=== PATIENT | female | born 1985 | race Caucasian/White ===

== ENCOUNTER 2019-07-12 09:57 | Observation (INO) ==
[2019-07-12 10:42] LABS: Bilirubin,Urine Negative (Negative); Blood,Urine Negative (Negative); Clarity,Urine Cloudy (Clear); Color,Urine Dark Yellow (Yellow); Glucose,Urine (UA) Normal (Normal); Ketones,Urine Negative (Negative); Leukocyte Esterase,Urine Large (Negative); Nitrite,Urine Negative (Negative); PH,Urine 5.5 pH Units (5.0-8.0); Protein,Urine 30 mg/dL (Neg-Trace); Specific Gravity,Urine 1.018 (1.010-1.025); Urobilinogen,Urine Normal (Normal)
[2019-07-12 10:43] LABS: Bacteria,Urine Few per hpf (None-Few); RBC,Urine 0-3 per hpf (0-3); Squamous Epithelial Cell,Urine Many per lpf (None-Few); WBC,Urine 50-100 per hpf (0-3)
[2019-07-12 10:55] LABS: Hematocrit 37.9 % (35.3-44.9); Hemoglobin 12.7 g/dL (11.5-15.4); Mean Corpuscular HGB Conc 33.5 g/dL (31.6-35.5); Mean Corpuscular Volume 86.5 fL (83.0-100.0); Mean Platelet Volume 9.9 fL (9.4-12.4); Monocytes # 0.4 K/mcL (0.0-1.3); Platelet Count 202 K/mcL (140-400); Red Blood Count 4.38 M/mcL (3.82-4.97); Red Cell Distribution Width 12.5 % (11.5-14.5); White Blood Count 11.8 K/mcL (4.3-11.1)
[2019-07-12] MEDS ORDERED: Ondansetron 4 MG/2 ML VIAL IVP ONE ×2 (11:09→14:11)
[2019-07-12] MEDS ORDERED: *HR* FentaNYL (PF) 100 MCG/2 ML VIAL IVP ONE (11:09)
[2019-07-12] MEDS ORDERED: 0.9 % Sodium Chloride 1,000 ML IVC ONE ×4 (11:09→16:35)
[2019-07-12] MEDS ORDERED: Isovue-370 500 ML BOTTLE IVP ONE (11:10)
[2019-07-12 11:16] LABS: Calcium 9.4 mg/dL (8.6-10.3); Potassium 3.6 mEq/L (3.5-5.1)
[2019-07-12 11:23] LABS: Lymphocytes # 0.9 K/mcL (0.6-4.6); Neutrophils # 9.7 K/mcL (1.6-8.9)
[2019-07-12 11:24] LABS: Large Platelets Present (Not Present)
[2019-07-12] MEDS ORDERED: Water for inj. (sterile) 10 ML ONE (12:12)
[2019-07-12] MEDS ORDERED: Piperacillin/Tazobactam 3.375 GM in 0.9 % Sodium Chloride Mini Bag 100 ML IVPB ONE (13:01)
--- NOTE | 2019-07-12 13:27 | Emergency Department Note ---
Disposition Clinical Impression: Colitis Abdominal pain Qualifiers: Abdominal location: lower abdomen, unspecified Qualified Code(s): R10.30 - Lower abdominal pain, unspecified Disposition: Admitted As Inpatient Condition: Fair Time of Disposition: 13:00 Abdominal Pain HPI - General Chief Complaint: ED Abdominal Pain Stated Complaint: ABD Pain Time Seen by Provider: 07/12/19 10:15 Source: patient Mode of arrival: ambulatory Limitations: no limitations Nursing Notes Reviewed: Yes Vital Signs Reviewed: Yes - History of Present Illness HPI Narrative: 34-year-old female presents emergency department with concerns of left lower quadrant abdominal pain. Patient states symptoms have been worsening over the past 3-4 days. She states they progressively worsened last night. Patient reports nausea and vomiting and has been unable to tolerate by mouth intake at home. She reports subjective fever but has not taken her temperature at home. She feels weak and fatigued. Her abdomen is very tender to palpation and she has worse with movement. No history of similar symptoms in the past. Patient denies recent trauma. Denies vaginal bleeding or vaginal discharge. Denies vaginal pain. Patient denies dysuria, hematuria, increased urinary frequency or foul-smelling urine. Pain Scale: 10 - Related Data Home Medications Medication Instructions Recorded Confirmed Gabapentin [Gralise] 600 mg PO DAILY 02/09/19 02/09/19 Ibuprofen [Ibu] 800 mg PO PRN PRN 02/09/19 02/09/19 Allergies Allergy/AdvReac Type Severity Reaction Status Date / Time No Known Allergies Allergy Verified 12/13/18 15:44 All systems ED: reviewed and negative except as stated. Review of Systems: As Per HPI Abdominal Pain PMH - Past Medical History Medical history: Reports: no medical history Female Surgical History: Reports: , orthopedic, other COMMERCIAL ADMINISTRATOR history: Reports: no COMMERCIAL ADMINISTRATOR history Psychiatric history: Reports: depression - Social History Smoking status: Current every day smoker Alcohol use: Reports: none Drug use: Reports: opiates, marijuana, IV Drug Use Physical Exam General: Alert and in no acute distress Skin: Warm, dry, intact Head: Normocephalic and atraumatic Neck: Supple, trachea midline and no tenderness Cardiovascular: Tachycardia, no murmur, normal perfusion Respiratory: CTAB, no wheezing, cough, or respiratory distress Musculoskeletal: Normal strength, no tenderness, swelling or deformity. No CVA tenderness GI: Generalized tenderness to the abdomen with worse symptoms in the left lower quadrant. Patient has guarding without rigidity. Neuro: A&O to person, place, time and situation. No focal deficits noted on exam Psychiatric: cooperative and appropriate mood and affect. - General Limitations: no limitations General appearance: alert, in no apparent distress Course Vital Signs Temperature 98.2 F 07/12/19 10:04 Pulse Rate 114 07/12/19 10:04 Respiratory Rate 16 07/12/19 10:04 Blood Pressure 93/61 07/12/19 10:04 O2 Sat by Pulse Oximetry 99 07/12/19 10:04 Temperature 98.2 F 07/12/19 19:27 Pulse Rate 76 07/12/19 19:27 Respiratory Rate 15 07/12/19 19:27 Blood Pressure 96/52 07/12/19 19:27 O2 Sat by Pulse Oximetry 94 07/12/19 19:27 Oxygen Delivery Oxygen Delivery Room Air Abdominal Pain - MDM Narrative Medical decision making narrative: Tachycardia blood pressure improved with IV fluids. Patient has possible colitis on her CT scan. She is treated with IV antibiotics in the emergency department. Patient also has what appears to be a ureterocele versus a ureter diverticulum. She does not have peritoneal pain she denies vaginal bleeding or vaginal discharge. I spoke with urology, Dr. Blum, who will see the patient on the floor. Patient will be admitted to the hospitalist for further care and evaluation. Vital signs stable prior to admission. - Medical Records Medical records reviewed: Yes I reviewed the patient's medical records. - Lab Data Lab results reviewed: Yes I reviewed the patient's lab results. Result diagrams: 07/12/19 10:38 07/12/19 10:38 Lab Results 07/12/19 07/12/19 07/12/19 Range/Units 10:25 10:38 10:38 WBC 11.8 H (4.3-11.1) K/mcL RBC 4.38 (3.82-4.97) M/mcL Hgb 12.7 (11.5-15.4) g/dL Hct 37.9 (35.3-44.9) % MCV 86.5 (83.0-100.0) fL MCH 29.0 (28.0-33.3) pg MCHC 33.5 (31.6-35.5) g/dL RDW 12.5 (11.5-14.5) % Plt Count 202 (140-400) K/mcL MPV 9.9 (9.4-12.4) fL Seg Neutrophils % 54.0 % Band Neutrophils % 28.0 H (0-4) % Lymphocytes % 8.0 % Monocytes % 3.0 % Metamyelocytes % 7.0 H (0) % Neutrophils # 9.7 H (1.6-8.9) K/mcL Lymphocytes # 0.9 (0.6-4.6) K/mcL Monocytes # 0.4 (0.0-1.3) K/mcL Large Platelets Present A (Not Present) Sodium 134 L (136-145) mEq/L Potassium 3.6 (3.5-5.1) mEq/L Chloride 101 (98-107) mEq/L Carbon Dioxide 23 (23-29) mEq/L BUN 20 (6-20) mg/dL Creatinine 1.35 H (0.60-1.20) mg/dL Est GFR ( Amer) 54 L (> 60) Est GFR (Non-Af Amer) 45 L (> 60) BUN/Creatinine Ratio 15 (6-26) Glucose 136 H (70-105) mg/dL Calculated Osmolality 283 (280-300) Lactic Acid (0.5-2.2) mmol/L Calcium 9.4 (8.6-10.3) mg/dL Urine Color Dark Yellow (Yellow) Urine Clarity Cloudy A (Clear) Urine pH 5.5 (5.0-8.0) pH Units Ur Specific [place] 1.018 (1.010-1.025) Urine Protein 30 H (Neg-Trace) mg/dL Urine Glucose (UA) Normal (Normal) mg/dL Urine Ketones Negative (Negative) mg/dL Urine Blood Negative (Negative) Urine Nitrite Negative (Negative) Urine Bilirubin Negative (Negative) Urine Urobilinogen Normal (Normal) mg/dL Ur Leukocyte Esterase Large H (Negative) Urine Microscopic RBC 0-3 (0-3) per hpf Urine Microscopic WBC 50-100 H (0-3) per hpf Ur Squamous Epith Cells Many H (None-Few) per lpf Urine Bacteria Few (None-Few) per hpf Ur Culture Indicated? YES A (NO) Urine Test (Negative) Ur C. trach DNA (PCR) (Not Detect) HIV Ag/Ab Combo Qual (Nonreactive) U N.gonorrhoeae DNA PCR (Not Detect) 07/12/19 07/12/19 07/12/19 Range/Units 11:31 13:15 17:45 WBC (4.3-11.1) K/mcL RBC (3.82-4.97) M/mcL Hgb (11.5-15.4) g/dL Hct (35.3-44.9) % MCV (83.0-100.0) fL MCH (28.0-33.3) pg MCHC (31.6-35.5) g/dL RDW (11.5-14.5) % Plt Count (140-400) K/mcL MPV (9.4-12.4) fL Seg Neutrophils % % Band Neutrophils % (0-4) % Lymphocytes % % Monocytes % % Metamyelocytes % (0) % Neutrophils # (1.6-8.9) K/mcL Lymphocytes # (0.6-4.6) K/mcL Monocytes # (0.0-1.3) K/mcL Large Platelets (Not Present) Sodium (136-145) mEq/L Potassium (3.5-5.1) mEq/L Chloride (98-107) mEq/L Carbon Dioxide (23-29) mEq/L BUN (6-20) mg/dL Creatinine (0.60-1.20) mg/dL Est GFR ( Amer) (> 60) Est GFR (Non-Af Amer) (> 60) BUN/Creatinine Ratio (6-26) Glucose (70-105) mg/dL Calculated Osmolality (280-300) Lactic Acid 2.7 H 2.8 H 2.5 H (0.5-2.2) mmol/L Calcium (8.6-10.3) mg/dL Urine Color (Yellow) Urine Clarity (Clear) Urine pH (5.0-8.0) pH Units Ur Specific [place] (1.010-1.025) Urine Protein (Neg-Trace) mg/dL Urine Glucose (UA) (Normal) mg/dL Urine Ketones (Negative) mg/dL Urine Blood (Negative) Urine Nitrite (Negative) Urine Bilirubin (Negative) Urine Urobilinogen (Normal) mg/dL Ur Leukocyte Esterase (Negative) Urine Microscopic RBC (0-3) per hpf Urine Microscopic WBC (0-3) per hpf Ur Squamous Epith Cells (None-Few) per lpf Urine Bacteria (None-Few) per hpf Ur Culture Indicated? (NO) Urine Test (Negative) Ur C. trach DNA (PCR) (Not Detect) HIV Ag/Ab Combo Qual (Nonreactive) U N.gonorrhoeae DNA PCR (Not Detect) 07/12/19 07/12/19 07/12/19 Range/Units 17:45 18:15 18:15 WBC (4.3-11.1) K/mcL RBC (3.82-4.97) M/mcL Hgb (11.5-15.4) g/dL Hct (35.3-44.9) % MCV (83.0-100.0) fL MCH (28.0-33.3) pg MCHC (31.6-35.5) g/dL RDW (11.5-14.5) % Plt Count (140-400) K/mcL MPV (9.4-12.4) fL Seg Neutrophils % % Band Neutrophils % (0-4) % Lymphocytes % % Monocytes % % Metamyelocytes % (0) % Neutrophils # (1.6-8.9) K/mcL Lymphocytes # (0.6-4.6) K/mcL Monocytes # (0.0-1.3) K/mcL Large Platelets (Not Present) Sodium (136-145) mEq/L Potassium (3.5-5.1) mEq/L Chloride (98-107) mEq/L Carbon Dioxide (23-29) mEq/L BUN (6-20) mg/dL Creatinine (0.60-1.20) mg/dL Est GFR ( Amer) (> 60) Est GFR (Non-Af Amer) (> 60) BUN/Creatinine Ratio (6-26) Glucose (70-105) mg/dL Calculated Osmolality (280-300) Lactic Acid (0.5-2.2) mmol/L Calcium (8.6-10.3) mg/dL Urine Color (Yellow) Urine Clarity (Clear) Urine pH (5.0-8.0) pH Units Ur Specific [place] (1.010-1.025) Urine Protein (Neg-Trace) mg/dL Urine Glucose (UA) (Normal) mg/dL Urine Ketones (Negative) mg/dL Urine Blood (Negative) Urine Nitrite (Negative) Urine Bilirubin (Negative) Urine Urobilinogen (Normal) mg/dL Ur Leukocyte Esterase (Negative) Urine Microscopic RBC (0-3) per hpf Urine Microscopic WBC (0-3) per hpf Ur Squamous Epith Cells (None-Few) per lpf Urine Bacteria (None-Few) per hpf Ur Culture Indicated? (NO) Urine Test Negative (Negative) Ur C. trach DNA (PCR) NOT DETECTED (Not Detect) HIV Ag/Ab Combo Qual Nonreactive (Nonreactive) U N.gonorrhoeae DNA PCR DETECTED A (Not Detect) - Radiology Data Radiology results reviewed: Yes I reviewed the patient's radiology results. - EKG Data EKG attestation: Yes I reviewed and interpreted this EKG. EKG results narrative: Sinus tachycardia with a rate of 106 without evidence of STEMI or other dysrhythmia. QTC of 452, QRS of 72.
[2019-07-12] MEDS ORDERED: Naloxone 0.4 MG/ML INJ IVP PRN (14:52)
--- NOTE | 2019-07-12 14:57 | Internal Med History&Physical ---
Date of Encounter: 07/12/19 Time of Encounter: 14:52 Internal Medicine - H&P: HPI Chief complaint: abdominal pain Admitted From: Home Plans for Post Hospital Care: Home History of present illness: Ms. Ruiz is a 34 year old female with past medical history of IV drug use including methamphetamine, heroin, opiates came in with complaint of abdominal pain. Patient is a very poor historian and not completely cooperative and forthcoming with history and changing her history. She has been having abdominal pain for almost a week. She reported having sex which was unprotected. She has history of STD in the past with coronary about 1-2 years ago. Does not consistently use protection. Denies having history of HIV. Denies having any obvious fever but felt febrile. Initially denied any vaginal discharge but mention there was some "abnormal urine/discharge" when she went to bathroom in ER. She denies any similar abdominal pain in the past. She has been using IV drugs last used 2 days ago and does not know exactly what she used to. Denies any diarrhea. Denies any urinary complaints including burning [place] or frequency in urination. Had associated nausea. Denying any rash. Patient was evaluated in ER with CBC, BMP, urine analysis and CT abdomen. Patient was found to have bandemia with elevated WBC, creatinine of 1.35, lactic acid of 2.8 from 2.7 and abnormal urinalysis with large leukocyte esterase many WBCs. Patient did not have any pelvic exam and refused to allow me. Patient was given 2 L of normal saline, fentanyl and Zosyn [address] abdomen was reviewed and multiple finding as below per radiologist. She does not have any allergies and does not take any regular medication. Past Med Surg Social Fam HX - Past Medical History Medical history: no medical history - Past Surgical History Surgical History: no surgical history Additional surgical history: csection, hand surgery on Lt - Social History Smoking Status: Current every day smoker Smokeless Tobacco Status: No Alcohol use: none Drug use: opiates, marijuana, IV Drug Use - Additional Family History Additional family history: No family history of crohns's or any other medical probelms that she is aware of. Internal Medicine - H&P: Meds Gabapentin [Gralise] 600 mg PO DAILY 02/09/19 [History] Ibuprofen [Ibu] 800 mg PO PRN PRN 02/09/19 [History] Allergy/AdvReac Type Severity Reaction Status Date / Time No Known Allergies Allergy Verified 12/13/18 15:44 All Systems PM: A 10-system review of systems was performed and is negative for pertinent findings except as documented above in the HPI. - Constitutional Vitals: Temp Pulse Resp BP Pulse Ox 98.2 F 94 17 104/57 97 07/12/19 10:04 07/12/19 11:06 07/12/19 11:06 07/12/19 11:06 07/12/19 11:06 Exam: Patient not fully cooperative during exam Constitutional: Vitals as noted. In mild distress holding abdomen. Eyes : Sclera white, conjunctiva clear, no lid lag, PEARLA. Respiratory : Clear to auscultation bilaterally. No accessory muscle use, rales, rhonchi or wheezes Cardiovascular : tachycardic, +S1, +S2. no murmur, gallop, rubs. GI/Abdominal : generalized tenderness, Non-distended, soft, suprapubic tenderness, no CVA tenderness. Musculoskeletal: no deformity noted. no edema or cyanosis. warm extremities, pulses palpable and symmetrical in UE/LE. no calf tenderness. Neurological: AO X3, CN II-XII grossly intact, grossly normal motor and sensory exam with limited exam. Skin: did not allow to exam throughly. Limited exam with no rash. Internal Med - H&P Results - Labs CBC & Chem 7: 07/12/19 10:38 07/12/19 10:38 Labs: Short CBC 07/12/19 Range/Units 10:38 WBC 11.8 H (4.3-11.1) K/mcL Hgb 12.7 (11.5-15.4) g/dL Hct 37.9 (35.3-44.9) % Plt Count 202 (140-400) K/mcL Neutrophils # 9.7 H (1.6-8.9) K/mcL BMP 07/12/19 10:38 Sodium 134 L Potassium 3.6 Chloride 101 Carbon Dioxide 23 BUN 20 Creatinine 1.35 H Glucose 136 H Calcium 9.4 Urine 07/12/19 Range/Units 10:25 Urine Color Dark Yellow (Yellow) Urine Clarity Cloudy A (Clear) Urine pH 5.5 (5.0-8.0) pH Units Ur Specific [place] 1.018 (1.010-1.025) Urine Protein 30 H (Neg-Trace) mg/dL Urine Glucose (UA) Normal (Normal) mg/dL - Impressions ITS Impressions Abdomen/Pelvis CT 07/12/19 11:10 IMPRESSION: 1. Mild wall thickening involving the colon at the hepatic flexure with a small amount of fluid and stranding in this region. Findings may be related to enterocolitis given inflammatory changes near the terminal ileum as well. Although the terminal ileum is underdistended given inflammatory changes in this region, recommend correlation with any history of Crohn's disease. The appendix is grossly normal. 2. Nonspecific mild inflammatory changes are noted in the anterior pelvis as well along the uterine fundus and bladder. Recommend correlation with urinalysis and pelvic exam.. Although there is heterogeneous enhancement of the uterus, which is nonspecific, the ovaries are otherwise normal in appearance. 3. Left-sided ureterocele is again identified. There is also a 1.5 x 1.0 cm peripherally enhancing cystic lesion within the perineum reflecting either a Duvall's duct cyst, urethral diverticulum, or less likely a Bartholin's gland duct cyst. An infected cyst is not excluded if there is focal pain in this region. D/ / 07/12/2019 12:51:59 Jessica Bagley MD / seven Interpreting Provider: Jessica Bagley MD - Assessment and Plan (1) Sepsis Current Visit: Yes Status: Acute Assessment and plan: Patient has severe sepsis with possible intra-abdominal source AIRCRAFT MECHANIC ARMAMENT source appeared to be more likely however also possible to have lower UTI and/or entero-colitis. Does not appear to have any skin lesion on side of IVDU or any other stigmata of endocarditis with a limited exam. Given patient's previous history of STD we will treat as such as patient does have some high risk behavior as well. We will consult AIRCRAFT MECH[employer]IC ARMAMENT for additional input. We will change patient's antibiotics to ceftriaxone, doxycycline and metronidazole for now. Follow blood and urine cultures. Follow-up lactic acid. We will do 1 more bolus of NS and continue at 100 mL after We will get HIV testing. Patient did not have any pelvic exam in ER. We will obtain urine chlamydia and gonorrhea testing along with urine toxicology and urine test. Patient's last menstrual period finished about 5 days ago. Qualifiers: Sepsis type: sepsis due to unspecified organism Sepsis acute organ dysfunction status: without acute organ dysfunction Qualified Code(s): A41.9 - Sepsis, unspecified organism (2) ROMAN (acute kidney injury) Current Visit: Yes Status: Acute Assessment and plan: Likely prerenal in nature due to sepsis continue patient on IV fluids Monitor renal function. Avoid nephrotoxins and monitor I/O (3) Polysubstance abuse Current Visit: Yes Status: Acute Assessment and plan: Patient with history of polysubstance drug abuse last use about 2 days ago Patient not forthcoming about all the different drugs she is using and all the method of using. She admits to use opiates, methamphetamine and marijuana. Denying any rectal or vaginal use Will avoid any substance with a due to potential. We will control pain with acetaminophen if needed. (4) IVDU (intravenous drug user) Current Visit: Yes Status: Acute Assessment and plan: as above (5) Abdominal pain Current Visit: Yes Status: Acute Qualifiers: Abdominal location: lower abdomen, unspecified Qualified Code(s): R10.30 - Lower abdominal pain, unspecified (6) DVT prophylaxis Current Visit: Yes Status: Acute Assessment and plan: heparin sc - Time Spent With Patient Total time spent is greater than 50% in coordination of care (as documented) at patient's floor/unit and/or counseling patient:
[2019-07-12] MEDS: Acetaminophen 325 MG TABLET PO PRN (17:47)
[2019-07-12] MEDS: 0.9 % Sodium Chloride 1,000 ML IVC SCH (19:15)
[2019-07-12 20:20] LABS: Chlamydia Trachomatis DNA Ur NOT DETECTED (Not Detect)
[2019-07-12] MEDS: cefTRIAXone 1,000 MG in Water for inj. (sterile) 10 ML IVP SCH (21:09)
[2019-07-12] MEDS: Doxycycline 100 MG in 0.9 % Sodium Chloride Mini Bag 100 ML IVPB SCH (21:10)
[2019-07-12] MEDS: *HR* Heparin 5,000 UNIT/ML VIAL SQ SCH (21:10)
[2019-07-12] MEDS ORDERED: Azithromycin 250 MG TABLET PO ONE (22:58)
--- NOTE | 2019-07-12 23:34 | OB/GYN Consult Note ---
Date of Encounter: 07/13/19 Time of Encounter: 21:00 Assessment and Plan (1) Gonorrhea Current Visit: Yes Status: Acute Patient is being treated with ceftriaxone, Flagyl, doxycycline per hospitalist team. We will add 2 g of Zithromax to the regimen. Ana is to follow-up with Dr. Ferrera in 2 weeks for a formal Pap smear, and a test of cure. At this point, [employer]BU[employer]ICE [employer]OD will sign off History of Present Illness Consult date: 07/12/19 Reason for consult: pelvic infection, medical complication Chief complaint: Abdominal Pain History of present illness: Ms. Ruiz is a 34 year old female with FDLMP 3 days ago and prior tubal ligation who presented with complaint of abdominal pain and was admitted to 3A for Sepsis. Patient states that her the abdominal pain started a few days ago in the left lower quadrant, and described it as a shooting pain that was an 8 out of 10 that has progressively gotten worse, and became unbearable last night. Her pain is now somewhat generalized over the entire abdomen but it is mostly in the left lower quadrant and suprapubic region. Patient has had no abdominal surgeries, and 2 pelvic surgeries (2 sections, and a tubal) She states that it radiates into her back and chest. Patient is a very poor historian. Her story has changed from the ED physician to the hospitalist, and to [employer]. Patient has a history of risky sexual behavior, has had multiple male partners over the past year with intermittent condom use. She states that she had a recent one night stand, that was unprotected. She has a history of gonorrhea, Denies having history of HIV or hepatitis. She is unsure of her last gynecological appointment or her last Pap smear results, but states that she was told that she had what she described as a pre cancerous female condition. Patient's last menstrual period ended 3 days ago. She states that her periods are regular, but they have been lasting longer than the usual normal 5-7 days, and they have been lasting around 10 days. She states that she has a history of having a left-sided ovarian cyst. She denies dyspareunia, vaginal odor, vaginal discharge. Denies dysuria, hematuria. The patient endorses some shortness of breath, nausea yesterday, nonbloody nonbilious vomiting 1 yesterday, subjective fevers, and anorexia. Patient was evaluated in ER with CBC, BMP, urine analysis and CT abdomen. Patient was found to have bandemia with elevated WBC, creatinine of 1.35, lactic acid of 2.8 from 2.7 and abnormal urinalysis with large leukocyte esterase many WBCs. The hospitalist team ordered urinary gonorrhea and chlamydia tests. Gonorrhea was positive, she was treated with ceftriaxone, doxycycline, and Flagyl by the hospitalist team. She was given Zosyn by the emergency medicine team. Past Med Surg Social Fam HX - Past Medical History Source: patient Medical history: IV drug use Additional medical history: Restless leg syndrome Psychiatric history: anxiety - Past Surgical History Surgical History: no surgical history, , other Additional surgical history: csection, hand surgery on Lt, tubal - Social History Smoking Status: Current every day smoker Packs per day: 1 Smokeless Tobacco Status: No Alcohol use: occasionally Drug use: opiates, marijuana, methamphetamine, IV Drug Use Medications and Allergies Gabapentin [Gralise] 600 mg PO DAILY 02/09/19 [History] Ibuprofen [Ibu] 800 mg PO PRN PRN 02/09/19 [History] Allergy/AdvReac Type Severity Reaction Status Date / Time No Known Allergies Allergy Verified 12/13/18 15:44 Review of Systems All Systems: reviewed and no additional remarkable complaints except as stated Constitutional: anorexia, fever(s), malaise, no chills, no fatigue, no headache(s), no lethargy Cardiovascular: chest pain, dyspnea, rapid heart rate, no radiating jaw, neck or arm pain, no leg edema, no lightheadedness, no syncope Respiratory: dyspnea Gastrointestinal: abdominal pain, nausea, no change in bowel habits, no constipation, no cramping, no excessive flatus, no fecal incontinence, no heartburn, no loose stools Genitourinary Female: abnormal menses, pelvic pain, no abnormal vaginal bleeding, no amenorrhea, no difficulty urinating, no difficulty voiding, no dysmenorrhea, no dyspareunia, no dysuria, no flank pain, no genital lesions, no genital pruritis, no sexual dysfunction, no urinary frequency, no urinary incontinence, no vaginal discharge, no vaginal odor Menstruation: menses 8 or > days Exam - Vital Signs Vital signs: Initial Vital Signs Temp Pulse Resp BP Pulse Ox 98.2 F 114 16 93/61 99 07/12/19 10:04 07/12/19 10:04 07/12/19 10:04 07/12/19 10:04 07/12/19 10:04 - Constitutional Constitutional: well developed, well nourished, no acute distress, average body habitus - HEENT HEENT: Normocephaly, Mucus Membranes Moist - Neck Neck exam: full ROM, normal inspection - Lungs Respiratory exam: CTAB, tachypnea - Cardiovascular Cardiovascular exam: +S1, +S2, tachycardia - Abdomen Abdomen: Present: bowel sounds normal, diffuse tenderness, guarding noted. Absent: gravid, mass Abdomen detail: right lower quadrant: tenderness (Suprapubic tenderness, voluntary guarding, no peritoneal signs, no rigidity, no fluid wave, no rebound. No guarding to deep auscultation), left lower quadrant: tenderness - Extremities Extremities exam: full ROM, normal capillary refill, normal inspection, radial pulses palpable and symmetrical - Comments Comments: The patient has refused a pelvic exam . She has agreed to follow up in [address] Ferrera as an outpatient for a formal Pap smear. Results Result Diagrams: 07/13/19 06:10 07/13/19 06:10 Abnormal lab results WBC 11.8 K/mcL (4.3-11.1) H 07/12/19 10:38 Band Neutrophils % 28.0 % (0-4) H 07/12/19 10:38 Metamyelocytes % 7.0 % (0) H 07/12/19 10:38 Neutrophils # 9.7 K/mcL (1.6-8.9) H 07/12/19 10:38 Large Platelets Present (Not Present) A 07/12/19 10:38 Sodium 134 mEq/L (136-145) L 07/12/19 10:38 Creatinine 1.35 mg/dL (0.60-1.20) H 07/12/19 10:38 Est GFR ( Amer) 54 (> 60) L 07/12/19 10:38 Est GFR (Non-Af Amer) 45 (> 60) L 07/12/19 10:38 Glucose 136 mg/dL (70-105) H 07/12/19 10:38 Lactic Acid 2.5 mmol/L (0.5-2.2) H 07/12/19 17:45 Urine Clarity Cloudy (Clear) A 07/12/19 10:25 Urine Protein 30 mg/dL (Neg-Trace) H 07/12/19 10:25 Ur Leukocyte Esterase Large (Negative) H 07/12/19 10:25 Urine Microscopic WBC 50-100 per hpf (0-3) H 07/12/19 10:25 Ur Squamous Epith Cells Many per lpf (None-Few) H 07/12/19 10:25 Ur Culture Indicated? YES (NO) A 07/12/19 10:25 U N.gonorrhoeae DNA PCR DETECTED (Not Detect) A 07/12/19 18:[address] All other labs normal. CT scan - abdomen: report reviewed CT scan - pelvis: report reviewed Consult Discharge Plan - Plan Instructions: Pelvic Inflammatory Disease (GEN), Pap Smear (GEN), Safe Sex (GEN) Additional Instructions: Please make an appointment with Dr. Sara Ferrera, in two weeks for a Pap Smear and test of cure. Referrals: NONE,PCP [Primary Care Provider] - Melisa Ferrera DO [Partnered Physician] - - Attending Attestation I examined this patient and my medical decision-making was reviewed with the Resident Physician. I agree with the documented findings, disposition and treatment plan as described. Signing off for WIRE WINDER. Please have the patient followup with me in my office in 2 weeks for test of cure. She is aware of the findings and agrees she will comply with followup. Melisa Ferrera DO
[2019-07-13] MEDS ORDERED: Ondansetron ODT 4 MG TAB.RAPDIS SL PRN (00:05)
[2019-07-13] MEDS: MetroNIDAZOLE 500 MG/100 ML 500 MG/100 ML BAG IVPB SCH ×2 (00:59→08:46)
[2019-07-13] MEDS: Acetaminophen 325 MG TABLET PO PRN ×2 (01:05→12:07)
[2019-07-13] MEDS ORDERED: Ondansetron 4 MG/2 ML VIAL IVP ONE (04:19)
[2019-07-13] MEDS: Doxycycline 100 MG in 0.9 % Sodium Chloride Mini Bag 100 ML IVPB SCH ×2 (05:35→17:29)
[2019-07-13] MEDS: *HR* Heparin 5,000 UNIT/ML VIAL SQ SCH ×3 (05:36→20:51)
[2019-07-13 06:23] LABS: Hematocrit 32.3 % (35.3-44.9); Mean Corpuscular HGB Conc 32.5 g/dL (31.6-35.5); Mean Corpuscular Hemoglobin 29.2 pg (28.0-33.3); Mean Corpuscular Volume 89.7 fL (83.0-100.0); Mean Platelet Volume 10.3 fL (9.4-12.4); Platelet Count 169 K/mcL (140-400); Red Cell Distribution Width 12.8 % (11.5-14.5)
[2019-07-13 06:30] LABS: Hemoglobin 10.5 g/dL (11.5-15.4)
[2019-07-13 06:43] LABS: BUN/Creatinine Ratio 18 (6-26); Blood Urea Nitrogen 17 mg/dL (6-20); Calcium 8.5 mg/dL (8.6-10.3); Carbon Dioxide 21 mEq/L (23-29); Chloride 110 mEq/L (98-107); Glucose 103 mg/dL (70-105); Osmolality,Calculated 288 (280-300); Potassium 4.2 mEq/L (3.5-5.1); Sodium 138 mEq/L (136-145); eGFR For African Americans > 60 (> 60); eGFR For Non-African Americans > 60 (> 60)
[2019-07-13 06:47] LABS: Lymphocytes # 0.9 K/mcL (0.6-4.6); Monocytes # 0.4 K/mcL (0.0-1.3); Neutrophils # 9.7 K/mcL (1.6-8.9); Platelet Estimate Normal (Normal); Smudge Cells Present (Not Present)
[2019-07-13] MEDS: 0.9 % Sodium Chloride 1,000 ML IVC SCH ×2 (08:46)
[2019-07-13] MEDS: Ketorolac 15 MG/ML VIAL IVP PRN ×3 (08:47→20:51)
--- NOTE | 2019-07-13 08:56 | Urology - Consult Note ---
<Janell Rizzo N - Last Filed: 07/13/19 08:54> Date of Encounter: 07/13/19 Time of Encounter: 08:00 - Assessment and Plan (1) Ureterocele Current Visit: Yes Status: Acute Assessment and plan: Patient is a 34-year-old female who presents with a left ureterocele. There are no prior films for comparison, but CT report is suggestive of redemonstration of left ureterocele. Patient reports this finding is unknown to her, and she denies any pain or changes with urination. Patient is not forthcoming with H&P, and she responded to only yes or no questions. I explained the ureterocele may be surgically repaired if she desires. I do not anticipate any urgent urologic surgical intervention during this hospital stay. Patient will likely require additional or repeat imaging as an outpatient. Dr. Blum will be in to reevaluate patient later this afternoon. (2) Perineal cyst in female Current Visit: Yes Status: Acute Assessment and plan: Patient is a 34-year-old female who presents with a 1.5 x 1.0 cm perineal cystic structure. I reviewed the CT findings with patient at bedside. She reports no palpable mass or pain within the vagina or perineum. The differential includes a Oliver's duct cyst versus urethral diverticulum. Patient may benefit from MRI, as this is the preferred imaging modality for the urethra. Dr. Blum is aware of findings, and he will discuss further management with patient. (3) Sepsis Current Visit: Yes Status: Acute Assessment and plan: Patient is a 34-year-old female who presents with a history of abdominal pain, elevated white blood cell count and gonorrhea cervicitis. Vital signs are currently stable and afebrile. Patient met sepsis criteria on admission. Urology recommendations awaiting final urine culture. Patient has received IV Rocephin, doxycycline, azithromycin and Zosyn. Qualifiers: Sepsis type: sepsis due to unspecified organism Sepsis acute organ dysfunction status: without acute organ dysfunction Qualified Code(s): A41.9 - Sepsis, unspecified organism Urology CN:[facility] Consult date: 07/13/19 Reason for consult Urology: Other (ureterocele; urethral diverticulum) Requesting physician: Evan Saldivar History of present illness: Patient is a 34-year-old female who presents with a history of left ureterocele and 1.5 x 1.0 cm enhancement within the perineum, possibly resembling a Oliver's gland cyst versus a urethral diverticulum. Patient is a known IV drug user and admits to heroin use, methamphetamine use and opioid abuse. Patient presented to the emergency department with complaints of left lower quadrant pain, nausea and vomiting. Patient underwent a CT of the abdomen and pelvis suggestive of colitis, left ureterocele, heterogeneous changes within the uterus and bladder, and a 1.5 x 1.0 cm cystic structure within the perineum. Patient was found to have a positive gonorrhea culture, and she has undergone [employer] consultation. Patient denies any vaginal pain, palpable cystic structure in the vagina or perineum, dysuria, gross hematuria, flank pain, fever, chills, urgency, frequency, or incontinence. Patient denies any known past history of renal stones or any known family history of renal stones or other malignancy. Patient states she is not established with a urologist and has no known prior significant history. Past Med Surg Social Fam HX - Past Medical History Medical history: IV drug use Additional medical history: Restless leg syndrome Psychiatric history: anxiety - Past Surgical History Surgical History: no surgical history, , other Additional surgical history: csection, hand surgery on Lt, tubal - Social History Smoking Status: Current every day smoker Packs per day: 1 Smokeless Tobacco Status: No Alcohol use: occasionally Drug use: opiates, marijuana, methamphetamine, IV Drug Use - Additional Family History Additional family history: Denies any known family history of renal stones or malignancy Medications and Allergies Ibuprofen [Ibu] 800 mg PO TID PRN 02/09/19 [History] Gabapentin 600 mg PO TID 07/13/19 [History] Allergy/AdvReac Type Severity Reaction Status Date / Time No Known Allergies Allergy Verified 07/13/19 10:46 Review of Systems - Constitutional no chills, no fatigue, no fever(s) - EENT Nose, mouth and throat: no dizziness, no headache(s) - Cardiovascular no chest pain, no diaphoresis, no dyspnea - Respiratory no cough, no dyspnea - Gastrointestinal abdominal pain, nausea, vomiting - Genitourinary Genitourinary: vaginal discharge, no change in urinary stream, no difficulty urinating, no dyspareunia, no dysuria, no flank pain, no hematuria, no nocturia, no urinary frequency, no urinary hesitancy, no urinary incontinence, no urinary urgency, no vaginal odor, no vaginal pruritis - Musculoskeletal no back pain, no muscle weakness - Integumentary no erythema, no rash - Neurological no confusion, no syncope - Psychiatric no anxiety, no confusion - Hematologic/Lymphatic no easy bleeding, no easy bruising - Allergic/Immunologic no throat swelling, no wheezing Exam Initial Vital Signs Temp Pulse Resp BP Pulse Ox 98.2 F 114 16 93/61 99 07/12/19 10:04 07/12/19 10:04 07/12/19 10:04 07/12/19 10:04 07/12/19 10:04 - General physical appearance Present: no distress, no pain - Eyes Present: PERRL, normal ocular movement - ENT Present: normal nares, no hearing loss, no congestion - Neck Present: no masses, trachea midline, no lymphadenopathy - Respiratory Present: normal respiratory effort - Cardiovascular Cardiovascular exam IM: RRR - Abdomen Abdomen: Present: soft, non tender. Absent: distended - Genitourinary Present: other (No CVAT) - Integumentary Present: no rash, no abnormal pigmentation - Neurologic Present: normal coordination - Musculoskeletal Present: other (Normal posture) Urology Results - Labs 07/13/19 06:10 07/13/19 06:10 Abnormal lab results WBC 11.8 K/mcL (4.3-11.1) H 07/12/19 10:38 RBC 3.60 M/mcL (3.82-4.97) L 07/13/19 06:10 Hgb 10.5 g/dL (11.5-15.4) L D 07/13/19 06:10 Hct 32.3 % (35.3-44.9) L 07/13/19 06:10 Band Neutrophils % 34.0 % (0-4) H 07/13/19 06:10 Metamyelocytes % 7.0 % (0) H 07/12/19 10:38 Neutrophils # 9.7 K/mcL (1.6-8.9) H 07/13/19 06:10 Smudge Cells Present (Not Present) A 07/13/19 06:10 Large Platelets Present (Not Present) A 07/12/19 10:38 Sodium 134 mEq/L (136-145) L 07/12/19 10:38 Chloride 110 mEq/L (98-107) H 07/13/19 06:10 Carbon Dioxide 21 mEq/L (23-29) L 07/13/19 06:10 Creatinine 1.35 mg/dL (0.60-1.20) H 07/12/19 10:38 Est GFR ( Amer) 54 (> 60) L 07/12/19 10:38 Est GFR (Non-Af Amer) 45 (> 60) L 07/12/19 10:38 Glucose 136 mg/dL (70-105) H 07/12/19 10:38 Lactic Acid 2.5 mmol/L (0.5-2.2) H 07/12/19 17:45 Calcium 8.5 mg/dL (8.6-10.3) L 07/13/19 06:10 Urine Clarity Cloudy (Clear) A 07/12/19 10:25 Urine Protein 30 mg/dL (Neg-Trace) H 07/12/19 10:25 Ur Leukocyte Esterase Large (Negative) H 07/12/19 10:25 Urine Microscopic WBC 50-100 per hpf (0-3) H 07/12/19 10:25 Ur Squamous Epith Cells Many per lpf (None-Few) H 07/12/19 10:25 Ur Culture Indicated? YES (NO) A 07/12/19 10:25 U N.gonorrhoeae DNA PCR DETECTED (Not Detect) A 07/12/19 18:15 Diabetes panel 07/12/19 07/13/19 Range/Units 10:38 06:10 Sodium 134 L 138 (136-145) mEq/L Potassium 3.6 4.2 (3.5-5.1) mEq/L Chloride 101 110 H (98-107) mEq/L Carbon Dioxide 23 21 L (23-29) mEq/L BUN 20 17 (6-20) mg/dL Creatinine 1.35 H 0.97 (0.60-1.20) mg/dL Glucose 136 H 103 (70-105) mg/dL Calcium 9.4 8.5 L (8.6-10.3) mg/dL Calcium panel 07/12/19 07/13/19 Range/Units 10:38 06:10 Calcium 9.4 8.5 L (8.6-10.3) mg/dL Pituitary panel 07/12/19 07/13/19 Range/Units 10:38 06:10 Sodium 134 L 138 (136-145) mEq/L Potassium 3.6 4.2 (3.5-5.1) mEq/L Chloride 101 110 H (98-107) mEq/L Carbon Dioxide 23 21 L (23-29) mEq/L BUN 20 17 (6-20) mg/dL Creatinine 1.35 H 0.97 (0.60-1.20) mg/dL Glucose 136 H 103 (70-105) mg/dL Calcium 9.4 8.5 L (8.6-10.3) mg/dL Adrenal panel 07/12/19 07/13/19 Range/Units 10:38 06:10 Sodium 134 L 138 (136-145) mEq/L Potassium 3.6 4.2 (3.5-5.1) mEq/L Chloride 101 110 H (98-107) mEq/L Carbon Dioxide 23 21 L (23-29) mEq/L BUN 20 17 (6-20) mg/dL Creatinine 1.35 H 0.97 (0.60-1.20) mg/dL Glucose 136 H 103 (70-105) mg/dL Calcium 9.4 8.5 L (8.6-10.3) mg/dL All other labs normal. - Imaging CT scan - abdomen: report reviewed, image reviewed CT scan - pelvis: report reviewed, image reviewed Consult Discharge Plan - Plan Instructions: Pelvic Inflammatory Disease (GEN), Pap Smear (GEN), Safe Sex (GEN) Additional Instructions: Please make an appointment with Dr. Sara Ferrera, in two weeks for a Pap Smear and test of cure. Referrals: Melisa Ferrera DO [Partnered Physician] - NONE,PCP [Primary Care Provider] - <Pierre Blum - Last Filed: 07/13/19 13:37> Date of Encounter: 07/13/19 Urology CN:HPI History of present illness: Patient was seen and examined independently. I do the plan as written by Janell Rizzo. Patient's exam not consistent with bladder or kidney discomfort. We will continue to follow along while patient in hospital. Patient will need follow-up visit with me to discuss evaluation of her ureterocele as well as periurethral abnormality. Exam Initial Vital Signs Temp Pulse Resp BP Pulse Ox 98.2 F 114 16 93/61 99 07/12/19 10:04 07/12/19 10:04 07/12/19 10:04 07/12/19 10:04 07/12/19 10:04 Urology Results - Labs 07/13/19 06:10 07/13/19 06:10 Abnormal lab results WBC 11.8 K/mcL (4.3-11.1) H 07/12/19 10:38 RBC 3.60 M/mcL (3.82-4.97) L 07/13/19 06:10 Hgb 10.5 g/dL (11.5-15.4) L D 07/13/19 06:10 Hct 32.3 % (35.3-44.9) L 07/13/19 06:10 Band Neutrophils % 34.0 % (0-4) H 07/13/19 06:10 Metamyelocytes % 7.0 % (0) H 07/12/19 10:38 Neutrophils # 9.7 K/mcL (1.6-8.9) H 07/13/19 06:10 Smudge Cells Present (Not Present) A 07/13/19 06:10 Large Platelets Present (Not Present) A 07/12/19 10:38 Sodium 134 mEq/L (136-145) L 07/12/19 10:38 Chloride 110 mEq/L (98-107) H 07/13/19 06:10 Carbon Dioxide 21 mEq/L (23-29) L 07/13/19 06:10 Creatinine 1.35 mg/dL (0.60-1.20) H 07/12/19 10:38 Est GFR ( Amer) 54 (> 60) L 07/12/19 10:38 Est GFR (Non-Af Amer) 45 (> 60) L 07/12/19 10:38 Glucose 136 mg/dL (70-105) H 07/12/19 10:38 Lactic Acid 2.5 mmol/L (0.5-2.2) H 07/12/19 17:45 Calcium 8.5 mg/dL (8.6-10.3) L 07/13/19 06:10 Urine Clarity Cloudy (Clear) A 07/12/19 10:25 Urine Protein 30 mg/dL (Neg-Trace) H 07/12/19 10:25 Ur Leukocyte Esterase Large (Negative) H 07/12/19 10:25 Urine Microscopic WBC 50-100 per hpf (0-3) H 07/12/19 10:25 Ur Squamous Epith Cells Many per lpf (None-Few) H 07/12/19 10:25 Ur Culture Indicated? YES (NO) A 07/12/19 10:25 U N.gonorrhoeae DNA PCR DETECTED (Not Detect) A 07/12/19 18:15 Diabetes panel 07/13/19 Range/Units 06:10 Sodium 138 (136-145) mEq/L Potassium 4.2 (3.5-5.1) mEq/L Chloride 110 H (98-107) mEq/L Carbon Dioxide 21 L (23-29) mEq/L BUN 17 (6-20) mg/dL Creatinine 0.97 (0.60-1.20) mg/dL Glucose 103 (70-105) mg/dL Calcium 8.5 L (8.6-10.3) mg/dL Calcium panel 07/13/19 Range/Units 06:10 Calcium 8.5 L (8.6-10.3) mg/dL Pituitary panel 07/13/19 Range/Units 06:10 Sodium 138 (136-145) mEq/L Potassium 4.2 (3.5-5.1) mEq/L Chloride 110 H (98-107) mEq/L Carbon Dioxide 21 L (23-29) mEq/L BUN 17 (6-20) mg/dL Creatinine 0.97 (0.60-1.20) mg/dL Glucose 103 (70-105) mg/dL Calcium 8.5 L (8.6-10.3) mg/dL Adrenal panel 07/13/19 Range/Units 06:10 Sodium 138 (136-145) mEq/L Potassium 4.2 (3.5-5.1) mEq/L Chloride 110 H (98-107) mEq/L Carbon Dioxide 21 L (23-29) mEq/L BUN 17 (6-20) mg/dL Creatinine 0.97 (0.60-1.20) mg/dL Glucose 103 (70-105) mg/dL Calcium 8.5 L (8.6-10.3) mg/dL All other labs normal.
--- NOTE | 2019-07-13 11:35 | Internal Med Progress Note ---
Hospitalist Progress Note - Encounter Date of Encounter: 07/13/19 Time of Encounter: 11:32 - Subjective Interval History: Patient seen and examined this morning in with some. No acute overnight events. Patient abdominal pain mildly improved, however still with pain. Afebrile and hemodynamically stable. - Exam Vitals: Temp Pulse Resp BP Pulse Ox 97.7 F 79 14 109/73 98 07/13/19 11:00 07/13/19 11:00 07/13/19 11:00 07/13/19 11:00 07/13/19 11:00 Exam: Constitutional: Vitals as noted. in no distress Respiratory : Clear to auscultation bilaterally. No accessory muscle use, rales, rhonchi or wheezes Cardiovascular : RRR, +S1, +S2. no murmur, gallop, rubs. GI/Abdominal : generalized tenderness, voluntary guarding, Musculoskeletal: no deformity noted. no edema or cyanosis, no calf tenderness. Neurological: AO X3, CN II-XII grossly intact, grossly normal motor and sensory exam with limited exam. Skin: did not allow to exam throughly. Limited exam with no rash. - Assessment and Plan (1) Sepsis Current Visit: Yes Status: Acute (2) ROMAN (acute kidney injury) Current Visit: Yes Status: Acute (3) Polysubstance abuse Current Visit: Yes Status: Acute (4) IVDU (intravenous drug user) Current Visit: Yes Status: Acute (5) Abdominal pain Current Visit: Yes Status: Acute (6) DVT prophylaxis Current Visit: Yes Status: Acute - Time Spent with Patient Assessment Acute Sepsis likely secondary to Gonorrhea Pelvic inflammatory disease ROMAN Ureterocele Perineal cyst Chronic IVDU Polysubstance abuse High risk sexual behaviour Plan - sepsis resolved. Likely secondary to PID from gonorrhea. OBGYN recommendation appreciated. She was given azithromycin dose. Will continue ceftraixone and doxycyline until cultures finalize. Stop metronidazole. HIV test negative. Will obtain syphilis testing. f/u blood and urine culture. - ROMAN resolved. will continue ivf for today - Has Lt ureterocele which is likely old and perineal cyst which is unlikely c ause of current symptoms. Urology recommendation appreciated. - counselled on risk of IVDU, polysubstance abuse and high risk sexual behaviour. Utox pending. - Start toradol prn for pain control as ROMAN resolved. - heparin sc Internal Medicine: Result - Labs CBC & Chem 7: 07/13/19 06:10 07/13/19 06:10 Labs: Short CBC 07/13/19 Range/Units 06:10 WBC 11.0 (4.3-11.1) K/mcL Hgb 10.5 L D (11.5-15.4) g/dL Hct 32.3 L (35.3-44.9) % Plt Count 169 (140-400) K/mcL Neutrophils # 9.7 H (1.6-8.9) K/mcL BMP 07/13/19 06:10 Sodium 138 Potassium 4.2 Chloride 110 H Carbon Dioxide 21 L BUN 17 Creatinine 0.97 Glucose 103 Calcium 8.5 L - Impressions Impressions Abdomen/Pelvis CT 07/12/19 11:10 IMPRESSION: 1. Mild wall thickening involving the colon at the hepatic flexure with a small amount of fluid and stranding in this region. Findings may be related to enterocolitis given inflammatory changes near the terminal ileum as well. Although the terminal ileum is underdistended given inflammatory changes in this region, recommend correlation with any history of Crohn's disease. The appendix is grossly normal. 2. Nonspecific mild inflammatory changes are noted in the anterior pelvis as well along the uterine fundus and bladder. Recommend correlation with urinalysis and pelvic exam.. Although there is heterogeneous enhancement of the uterus, which is nonspecific, the ovaries are otherwise normal in appearance. 3. Left-sided ureterocele is again identified. There is also a 1.5 x 1.0 cm peripherally enhancing cystic lesion within the perineum reflecting either a Cacao's duct cyst, urethral diverticulum, or less likely a Bartholin's gland duct cyst. An infected cyst is not excluded if there is focal pain in this region. D/ / 07/12/2019 12:51:59 Jessica Bagley MD / seven Interpreting Provider: Jessica Bagley MD Consult Discharge Plan - Plan Instructions: Pelvic Inflammatory Disease (GEN), Pap Smear (GEN), Safe Sex (GEN) Additional Instructions: Please make an appointment with Dr. Sara Ferrera, in two weeks for a Pap Smear and test of cure. Referrals: Melisa Ferrera, DO [Partnered Physician] - NONE,PCP [Primary Care Provider] - (1) Sepsis Qualifiers: Sepsis type: sepsis due to unspecified organism Sepsis acute organ dysfunction status: without acute organ dysfunction Qualified Code(s): A41.9 - Sepsis, unspecified organism (5) Abdominal pain Qualifiers: Abdominal location: lower abdomen, unspecified Qualified Code(s): R10.30 - Lower abdominal pain, unspecified
[2019-07-13] MEDS: Nicotine 2 MG GUM BC PRN (11:49)
[2019-07-13] MEDS: Nicotine 21 MG PATCH.TD24 TD SCH (11:49)
[2019-07-13 16:09] LABS: Alanine Aminotransferase 22 Units/L (7-52); Albumin 3.2 g/dL (3.5-5.7); Albumin/Globulin Ratio 1.5 (1.1-2.2); Alkaline Phosphatase 54 Units/L (34-104); Aspartate Amino Transferase 24 Units/L (13-39); Bilirubin,Direct 0.1 mg/dL (0.0-0.2); Bilirubin,Indirect 0.2 mg/dL (0.0-1.2); Bilirubin,Total 0.3 mg/dL (0.3-1.0); Globulin 2.1 g/dL (2.4-3.5); Total Protein 5.3 g/dL (6.4-8.9)
[2019-07-13] MEDS ORDERED: *HR* FentaNYL (PF) 100 MCG/2 ML VIAL IVP ONE (16:54)
[2019-07-13 17:26] LABS: Amphetamine Screen,Urine Positive ng/mL (Cutoff=1000); Barbiturate Screen,Urine Negative ng/mL (Cutoff=200); Benzodiazepines Screen,Urine Negative ng/mL (Cutoff=200); Cannabinoid Screen,Urine Negative ng/mL (Cutoff = 50); Cocaine Screen,Urine Positive ng/mL (Cutoff= 300); Opiate Screen,Urine Negative ng/mL (Cutoff=300); Phencyclidine Screen,Urine Negative ng/mL (Cutoff=25)
[2019-07-13] MEDS: cefTRIAXone 1,000 MG in Water for inj. (sterile) 10 ML IVP SCH (17:28)
[2019-07-14] MEDS: 0.9 % Sodium Chloride 1,000 ML IVC SCH ×2 (05:00→08:42)
[2019-07-14] MEDS: Doxycycline 100 MG in 0.9 % Sodium Chloride Mini Bag 100 ML IVPB SCH ×2 (05:18→17:49)
[2019-07-14] MEDS: *HR* Heparin 5,000 UNIT/ML VIAL SQ SCH ×3 (05:18→21:20)
[2019-07-14 05:26] LABS: Hematocrit 34.2 % (35.3-44.9); Hemoglobin 10.6 g/dL (11.5-15.4); Mean Corpuscular Hemoglobin 28.1 pg (28.0-33.3); Mean Corpuscular Volume 90.7 fL (83.0-100.0); Mean Platelet Volume 10.2 fL (9.4-12.4); Platelet Count 168 K/mcL (140-400); Red Blood Count 3.77 M/mcL (3.82-4.97); Red Cell Distribution Width 12.9 % (11.5-14.5); White Blood Count 8.7 K/mcL (4.3-11.1)
[2019-07-14 05:43] LABS: BUN/Creatinine Ratio 23 (6-26); Blood Urea Nitrogen 23 mg/dL (6-20); Calcium 8.5 mg/dL (8.6-10.3); Carbon Dioxide 24 mEq/L (23-29); Chloride 109 mEq/L (98-107); Glucose 91 mg/dL (70-105); Magnesium 1.6 mg/dL (1.6-2.6); Osmolality,Calculated 289 (280-300); Phosphorous 2.9 mg/dL (2.7-4.5); Potassium 3.8 mEq/L (3.5-5.1); Sodium 138 mEq/L (136-145); eGFR For African Americans > 60 (> 60); eGFR For Non-African Americans > 60 (> 60)
[2019-07-14 06:41] LABS: Eosinophils # 0.4 K/mcL (0.0-0.6); Lymphocytes # 1.1 K/mcL (0.6-4.6); Monocytes # 0.3 K/mcL (0.0-1.3); Neutrophils # 6.9 K/mcL (1.6-8.9); Platelet Estimate Normal (Normal)
--- NOTE | 2019-07-14 08:31 | Urology Progress Note ---
<Janell Rizzo N - Last Filed: 07/14/19 08:28> Date of Encounter: 07/14/19 Time of Encounter: 08:10 - Assessment and Plan (1) Ureterocele Current Visit: Yes Status: Acute Assessment and plan: Patient is a 34-year-old female who presents the history of a left ureterocele. We discussed the importance of outpatient follow-up in order to surveillance ureterocele. Patient verbalized understanding. (2) Periurethral cyst Current Visit: Yes Status: Acute Assessment and plan: Patient is a 34-year-old female who presents with a periurethral cyst. We discussed the potential need for further imaging such as an MRI. Patient is aware she will require an outpatient follow-up with Dr. Blum within 2-4 weeks. Urine culture is negative, and white blood cell count has trended down to 8.7. At this time, urology will sign off with anticipation of outpatient follow-up. Progress Note Subjective: no new complaints Narrative: Patient seen and examined sitting upright in bed in no apparent distress. Patient denies any fever, chills, flank pain, dysuria or gross hematuria. Objective Initial Vital Signs Temp Pulse Resp BP Pulse Ox 98.2 F 114 16 93/61 99 07/12/19 10:04 07/12/19 10:04 07/12/19 10:04 07/12/19 10:04 07/12/19 10:04 - General physical appearance Present: no distress, no pain - Respiratory Present: normal expansion, normal respiratory effort - Abdomen Present: soft, non tender. Absent: distended - Genitourinary Present: other (No CVAT) - Integumentary Present: no rash, no abnormal pigmentation - Musculoskeletal Present: normal posture - Psychiatric Present: oriented to time, oriented to person, oriented to place, speech is normal, memory intact - Labs 07/14/19 05:10 07/14/19 05:10 Diabetes panel 07/13/19 07/14/19 Range/Units 06:10 05:10 Sodium 138 138 (136-145) mEq/L Potassium 4.2 3.8 (3.5-5.1) mEq/L Chloride 110 H 109 H (98-107) mEq/L Carbon Dioxide 21 L 24 (23-29) mEq/L BUN 17 23 H (6-20) mg/dL Creatinine 0.97 1.02 (0.60-1.20) mg/dL Glucose 103 91 (70-105) mg/dL Calcium 8.5 L 8.5 L (8.6-10.3) mg/dL AST 24 (13-39) Units/L ALT 22 (7-52) Units/L Alkaline Phosphatase 54 (34-104) Units/L Albumin 3.2 L (3.5-5.7) g/dL Calcium panel 07/13/19 07/14/19 Range/Units 06:10 05:10 Calcium 8.5 L 8.5 L (8.6-10.3) mg/dL Phosphorus 2.9 (2.7-4.5) mg/dL Albumin 3.2 L (3.5-5.7) g/dL Pituitary panel 07/13/19 07/14/19 Range/Units 06:10 05:10 Sodium 138 138 (136-145) mEq/L Potassium 4.2 3.8 (3.5-5.1) mEq/L Chloride 110 H 109 H (98-107) mEq/L Carbon Dioxide 21 L 24 (23-29) mEq/L BUN 17 23 H (6-20) mg/dL Creatinine 0.97 1.02 (0.60-1.20) mg/dL Glucose 103 91 (70-105) mg/dL Calcium 8.5 L 8.5 L (8.6-10.3) mg/dL Adrenal panel 07/13/19 07/14/19 Range/Units 06:10 05:10 Sodium 138 138 (136-145) mEq/L Potassium 4.2 3.8 (3.5-5.1) mEq/L Chloride 110 H 109 H (98-107) mEq/L Carbon Dioxide 21 L 24 (23-29) mEq/L BUN 17 23 H (6-20) mg/dL Creatinine 0.97 1.02 (0.60-1.20) mg/dL Glucose 103 91 (70-105) mg/dL Calcium 8.5 L 8.5 L (8.6-10.3) mg/dL Total Bilirubin 0.3 (0.3-1.0) mg/dL AST 24 (13-39) Units/L ALT 22 (7-52) Units/L Alkaline Phosphatase 54 (34-104) Units/L Albumin 3.2 L (3.5-5.7) g/dL Consult Discharge Plan - Plan Instructions: Pelvic Inflammatory Disease (GEN), Pap Smear (GEN), Safe Sex (GEN) Additional Instructions: Please make an appointment with Dr. Sara Ferrera, in two weeks for a Pap Smear and test of cure. Referrals: Melisa Ferrera, DO [Partnered Physician] - NONE,PCP [Primary Care Provider] - <Pierre Blum - Last Filed: 07/15/19 07:50> Date of Encounter: 07/15/19 Progress Note Narrative: Patient was seen and examined the evening of July 14. I agree with the plan as written by Janell Rizzo. Patient clinically improving. Urine culture negative. Patient can follow up with urology in the next 3-4 weeks. Objective Initial Vital Signs Temp Pulse Resp BP Pulse Ox 98.2 F 114 16 93/61 99 07/12/19 10:04 07/12/19 10:04 07/12/19 10:04 07/12/19 10:04 07/12/19 10:04 - Labs 07/14/19 05:10 07/14/19 05:10
[2019-07-14] MEDS: Nicotine 21 MG PATCH.TD24 TD SCH (08:43)
[2019-07-14] MEDS: Ketorolac 15 MG/ML VIAL IVP PRN ×2 (08:47→18:01)
[2019-07-14] MEDS ORDERED: *HR* FentaNYL (PF) 100 MCG/2 ML VIAL IVP ONE (10:32)
--- NOTE | 2019-07-14 10:37 | Internal Med Progress Note ---
Hospitalist Progress Note - Encounter Date of Encounter: 07/14/19 Time of Encounter: 10:33 - Subjective Interval History: Patient seen and examined this morning at bedside. Denies no acute overnight events. Abdominal pain improved but still present. Denies any nausea vomiting or fevers. Did have an episode of diarrhea yesterday. No further episodes. Denies any difficulty breathing. - Exam Vitals: Temp Pulse Resp BP Pulse Ox 98.7 F 83 16 132/87 98 07/14/19 06:42 07/14/19 06:42 07/14/19 06:42 07/14/19 06:42 07/14/19 06:42 Exam: Constitutional: Vitals as noted. in no distress Respiratory : Clear to auscultation bilaterally. No accessory muscle use, rales, rhonchi or wheezes Cardiovascular : RRR, +S1, +S2. no murmur, gallop, rubs. GI/Abdominal : generalized tenderness more pronounced in suprapubic region, voluntary guarding, soft, Bowel sound present Musculoskeletal: no deformity noted. no edema or cyanosis, no calf tenderness. Neurological: AO X3, CN II-XII grossly intact, grossly normal motor and sensory exam with limited exam. - Assessment and Plan (1) Sepsis Current Visit: Yes Status: Acute (2) ROMAN (acute kidney injury) Current Visit: Yes Status: Acute (3) Polysubstance abuse Current Visit: Yes Status: Acute (4) IVDU (intravenous drug user) Current Visit: Yes Status: Acute (5) Abdominal pain Current Visit: Yes Status: Acute (6) DVT prophylaxis Current Visit: Yes Status: Acute - Summary of Assessment and Plan Summary of Assessment and Plan: Acute Sepsis likely secondary to Gonorrhea Pelvic inflammatory disease ROMAN Ureterocele Perineal cyst Chronic IVDU Polysubstance abuse High risk sexual behaviour Plan - sepsis resolved. Likely secondary to PID from gonorrhea. OBGYN recommendation appreciated. She was given azithromycin dose. Will continue ceftraixone and doxycyline until cultures negative till tomorrow. HIV test negative. VDRL/FTA testing pending. Urine cultures negative. Continue Toradol for pain control. We will do 1 dose of fentanyl however he was not discharg on any opiates given IV drug use. - ROMAN resolved. stop IVF. - Has Lt ureterocele. Urology recommendation appreciated. Will need outpatient follow upn in 2-4 weeks and may need outpatient MRI. - Utox positive for amphetamine and cocaine. Discussed risk of IV drug. counselled on risk of IVDU, polysubstance abuse and high risk sexual behaviour. Utox pending. - heparin sc - Time Spent with Patient Total time spent is greater than 50% in coordination of care (as documented) at patient's floor/unit and/or counseling patient: Internal Medicine: Result - Labs CBC & Chem 7: 07/14/19 05:10 07/14/19 05:10 Labs: Short CBC 07/14/19 Range/Units 05:10 WBC 8.7 (4.3-11.1) K/mcL Hgb 10.6 L (11.5-15.4) g/dL Hct 34.2 L (35.3-44.9) % Plt Count 168 (140-400) K/mcL Neutrophils # 6.9 (1.6-8.9) K/mcL BMP 07/13/19 07/14/19 06:10 05:10 Sodium 138 138 Potassium 4.2 3.8 Chloride 110 H 109 H Carbon Dioxide 21 L 24 BUN 17 23 H Creatinine 0.97 1.02 Glucose 103 91 Calcium 8.5 L 8.5 L Liver Function 07/13/19 Range/Units 06:10 Total Bilirubin 0.3 (0.3-1.0) mg/dL Direct Bilirubin 0.1 (0.0-0.2) mg/dL AST 24 (13-39) Units/L ALT 22 (7-52) Units/L Alkaline Phosphatase 54 (34-104) Units/L Albumin 3.2 L (3.5-5.7) g/dL Consult Discharge Plan - Plan Instructions: Pelvic Inflammatory Disease (GEN), Pap Smear (GEN), Safe Sex (GEN) Additional Instructions: Please make an appointment with Dr. Sara Ferrera, in two weeks for a Pap Smear and test of cure. Referrals: Melisa Ferrera, [Partnered Physician] - NONE,PCP [Primary Care Provider] - (1) Sepsis Qualifiers: Sepsis type: sepsis due to unspecified organism Sepsis acute organ dysfunction status: without acute organ dysfunction Qualified Code(s): A41.9 - Sepsis, unspecified organism (5) Abdominal pain Qualifiers: Abdominal location: lower abdomen, unspecified Qualified Code(s): R10.30 - Lower abdominal pain, unspecified
[2019-07-14] MEDS: cefTRIAXone 1,000 MG in Water for inj. (sterile) 10 ML IVP SCH (17:49)
--- NOTE | 2019-07-14 17:54 | Electrocardiograph Report ---
[address] [place], [place] [address] Test Date: 2019-07-12 Pat Name: Ana Ruiz Department: [id number] Room: 3A56 Gender: F Senior Systems Programmer: : [id number] Requested By: Arian Armenta Order Number: [id number] Reading MD: Sandie Lala Measurements Intervals [place] Rate: 106 P: 89 LA: 138 QRS: 84 QRSD: 72 T: 99 QT: 340 QTc: 452 Interpretive Statements Sinus tachycardia Right atrial enlargement Electronically Signed On 07-14-2019 17:52:50 EDT by Sandie Lala
[2019-07-14] MEDS: Nicotine 2 MG GUM BC PRN (18:00)
[2019-07-14] MEDS ORDERED: traMADol 50 MG TABLET PO ONE (22:29)
[2019-07-15] MEDS: Ketorolac 15 MG/ML VIAL IVP PRN (02:58)
[2019-07-15] MEDS: Doxycycline 100 MG in 0.9 % Sodium Chloride Mini Bag 100 ML IVPB SCH (04:55)
[2019-07-15] MEDS: *HR* Heparin 5,000 UNIT/ML VIAL SQ SCH (05:31)
[2019-07-15] MEDS: Nicotine 21 MG PATCH.TD24 TD SCH (08:13)
--- NOTE | 2019-07-15 09:43 | Discharge Summary ---
- NOTES TO OUTPATIENT PROVIDER Notes to Outpatient Provider: Patient will need to follow with [facility] in 2 weeks. Prescribed doxycycline for to finished 2 weeks of antibiotic course Orders not resulted at time of discharge: Pending orders 07/12/19 11:25 Culture,Blood [BC] Stat 07/14/19 05:10 FTA-T.Pallidum Ab, IgG AM 0400 VDRL AM 0400 Date of Encounter: 07/15/19 Time of Encounter: 09:30 - Discharge Diagnosis (1) Sepsis Priority: Primary Status: Acute Qualifiers: Sepsis type: sepsis due to unspecified organism Sepsis acute organ dysfunction status: without acute organ dysfunction Qualified Code(s): A41.9 - Sepsis, unspecified organism (2) ROMAN (acute kidney injury) Priority: Primary Status: Acute (3) Polysubstance abuse Priority: Secondary Status: Acute (4) IVDU (intravenous drug user) Priority: Secondary Status: Acute (5) DVT prophylaxis Priority: Secondary Status: Acute (6) Gonorrhea Priority: Primary Status: Acute Hospital course: Ms. Ruiz is a 34 year old female with past medical history of IV drug use came in with complain of abdominal pain and fevers with signs of sepsis. She was found to have positive gonorrhea and likely Pelvic inflammatory disease per [facility]. She was treated initially with broad-spectrum antibiotics and later on with ceftriaxone and doxycycline. She did get 1 dose of azithromycin per [facility]. Patient had diffuse pelvic exam and could not obtain cervical cultures. Blood cultures remain negative. Patient symptomatically improved without any fevers. Patient no stable to be discharged home to follow-up with [facility] in 2 weeks. Discussed about risks of IV drug use, safe sex practices. Discussed about need for hepatitis B vaccination if not episode before. Discharge discussed with: patient, nurse - Time Spent with Patient Total time spent providing and/or coordinating discharge services: Time spent: Greater than 30 minutes (40) - Discharge Medications Prescriptions: New Doxycycline 100 mg PO BID 10 Days #20 capsule Continued Ibuprofen [Ibu] 800 mg PO TID PRN PRN Reason: Pain Gabapentin 600 mg PO TID Home Medications: Ibuprofen [Ibu] 800 mg PO TID PRN 02/09/19 [History] Gabapentin 600 mg PO TID 07/13/19 [History] Doxycycline 100 mg PO BID 10 Days #20 capsule 07/15/19 [Rx] Allergies/Adverse Reactions: Allergy/AdvReac Type Severity Reaction Status Date / Time No Known Allergies Allergy Verified 07/13/19 10:46 Date of admission: 07/12/19 14:10 Primary care physician: PCP NONE Consults: 07/12/19 15:04 Consult to ALGOLOGY TEACHER [CONS] Routine Consulting Provider: [facility] Mago Reason for Consult: abnormal appearnce of uterus on CT, ?pelvic source of sepsis Call Completed: Yes Discharging clinician: Jackie Bagley - Constitutional Vitals: Temp Pulse Resp BP Pulse Ox 98.2 F 60 14 131/87 98 07/15/19 07:04 07/15/19 07:04 07/15/19 07:04 07/15/19 07:04 07/15/19 07:04 Exam: Constitutional: Vitals as noted. in no distress Respiratory : Clear to auscultation bilaterally. No accessory muscle use, rales, rhonchi or wheezes Cardiovascular : RRR, +S1, +S2. no murmur, gallop, rubs. GI/Abdominal : generalized tenderness improved, soft, Bowel sound present Musculoskeletal: no deformity noted. no edema or cyanosis, no calf tenderness. Neurological: AO X3, CN II-XII grossly intact, grossly normal motor and sensory exam with limited exam. - Patient Status Disposition: Home, Self-Care Condition: Fair - Discharge Instructions Instructions: Pelvic Inflammatory Disease (GEN), Pap Smear (GEN), Safe Sex (GEN) Follow Up With: Melisa Ferrera DO [Partnered Physician] - NONE,PCP [Primary Care Provider] - Additional Instructions: Please make an appointment with Dr. Sara Ferrera, in two weeks for a Pap Smear and test of cure. - Diet and Activity Activity: increase activity as tolerated
[2019-07-15 10:09] LABS: Hepatitis B Surface Antigen Nonreactive (Nonreactive)
[2019-07-15 10:39] LABS: Hepatitis B Core IgM Nonreactive (Nonreactive)
[2019-07-15 10:41] LABS: Hepatitis A Antibody IgM Nonreactive (Nonreactive)
[2019-07-15 11:20] VITALS: BP 121/80
[2019-07-15 12:44] LABS: Hepatitis C Virus Antibody Reactive (Nonreactive)
== END 2019-07-15 12:48 | disposition home or self-care (01) ==
LOC: 3ANU 09:57 → EMEROOARM 09:57 → SUATTDRO 14:10 → 3ANU 15:21
PROVIDERS: ADMIT Internal Medicine; ATTEND Internal Medicine

== ENCOUNTER 2022-08-14 19:18 | Inpatient (IN) ==
[2022-08-14] MEDS ORDERED: Naloxone 0.4 MG/ML INJ IVP PRN (21:10)
[2022-08-14] MEDS ORDERED: Ondansetron ODT 4 MG TAB.RAPDIS SL PRN (21:10)
[2022-08-14] MEDS ORDERED: Melatonin 3 MG TABLET PO PRN (21:10)
[2022-08-14] MEDS ORDERED: Ringers Solution, Lactated 1,000 ML IVC ONE (21:57)
[2022-08-14] MEDS: cloNIDine HCL 0.1 MG TABLET PO SCH (23:12)
[2022-08-15] MEDS: Piperacillin/Tazobactam 3.375 GM in 0.9 % Sodium Chloride Mini Bag 100 ML IVPB SCH ×3 (03:27→18:07)
[2022-08-15 05:57] LABS: Basophils # 0.1 K/mcL (0.0-0.2); Basophils % 0.4 %; Eosinophils % 0.1 %; Hematocrit 27.9 % (35.3-44.9); Hemoglobin 9.1 g/dL (11.5-15.4); Immature Granulocytes % 1.7 % (0-4); Immature Platelets 4.9 % (1.1-6.1); Lymphocytes % 6.9 %; Mean Corpuscular HGB Conc 32.6 g/dL (31.6-35.5); Mean Corpuscular Hemoglobin 27.7 pg (28.0-33.3); Mean Corpuscular Volume 85.1 fL (83.0-100.0); Mean Platelet Volume 10.4 fL (9.4-12.4); Monocytes # 0.9 K/mcL (0.0-1.3); Monocytes % 6.5 %; Neutrophils # 11.6 K/mcL (1.6-8.9); Platelet Count 165 K/mcL (140-400); Red Blood Count 3.28 M/mcL (3.82-4.97); Red Cell Distribution Width 13.2 % (11.5-14.5); Segmented Neutrophils % 84.4 %; White Blood Count 13.7 K/mcL (4.3-11.1)
[2022-08-15 06:07] LABS: Albumin 2.6 g/dL (3.5-5.7); Bilirubin,Total 0.4 mg/dL (0.3-1.0); Globulin 2.7 g/dL (2.4-3.5); Magnesium 1.7 mg/dL (1.6-2.6); Phosphorous 2.7 mg/dL (2.7-4.5); Potassium 4.3 mEq/L (3.5-5.1); Total Protein 5.3 g/dL (6.4-8.9)
[2022-08-15] MEDS: *HR* Heparin 5,000 UNIT/ML VIAL SQ SCH ×2 (06:17→18:06)
[2022-08-15 06:19] LABS: Platelet Estimate Normal (Normal)
[2022-08-15] MEDS: Nicotine 14 MG PATCH.TD24 TD SCH (08:02)
[2022-08-15] MEDS: cloNIDine HCL 0.1 MG TABLET PO SCH ×3 (08:02→20:26)
[2022-08-15 11:49] LABS: Bacteria,Urine Few per hpf (None-Few); Bilirubin,Urine Negative (Negative); Blood,Urine Negative (Negative); Clarity,Urine Turbid (Clear); Color,Urine Light-Yellow (Yellow); Glucose,Urine (UA) Normal (Normal); Ketones,Urine Negative (Negative); Leukocyte Esterase,Urine Negative (Negative); Mucus,Urine Few per lpf (None-Few); Nitrite,Urine Negative (Negative); Protein,Urine 50 mg/dL (Neg-Trace); RBC,Urine 0-3 per hpf (0-3); Specific Gravity,Urine 1.016 (1.010-1.025); Squamous Epithelial Cell,Urine Few per hpf (None-Few); Urobilinogen,Urine Normal (Normal); WBC,Urine 0-3 per hpf (0-3)
[2022-08-15 11:58] LABS: Influenza A PCR Negative (Negative); Influenza B PCR Negative (Negative); Resp. Syncytial Virus PCR Negative (Negative)
[2022-08-15 13:09] LABS: SARS-CoV-2 by PCR (In House) Negative (Negative)
[2022-08-15] MEDS: 0.9 % Sodium Chloride 1,000 ML IVC SCH ×2 (13:13→22:09)
[2022-08-15] MEDS: Vancomycin 1,500 MG/265 ML IV.SOLN IVPB SCH ×2 (13:13→23:40)
[2022-08-16] MEDS: Piperacillin/Tazobactam 3.375 GM in 0.9 % Sodium Chloride Mini Bag 100 ML IVPB SCH ×3 (02:15→18:50)
[2022-08-16] MEDS: *HR* Heparin 5,000 UNIT/ML VIAL SQ SCH ×2 (04:16→17:31)
[2022-08-16] MEDS: 0.9 % Sodium Chloride 1,000 ML IVC SCH ×2 (05:59→19:52)
[2022-08-16] MEDS: Nicotine 14 MG PATCH.TD24 TD SCH (10:32)
[2022-08-16] MEDS: cloNIDine HCL 0.1 MG TABLET PO SCH ×3 (10:32→20:49)
[2022-08-16] MEDS: Vancomycin 1,500 MG/265 ML IV.SOLN IVPB SCH (12:58)
[2022-08-17 01:20] LABS: Hematocrit 21.8 % (35.3-44.9); Hemoglobin 7.1 g/dL (11.5-15.4); Mean Corpuscular HGB Conc 32.6 g/dL (31.6-35.5); Mean Corpuscular Hemoglobin 27.5 pg (28.0-33.3); Mean Corpuscular Volume 84.5 fL (83.0-100.0); Mean Platelet Volume 9.6 fL (9.4-12.4); Platelet Count 245 K/mcL (140-400); Red Blood Count 2.58 M/mcL (3.82-4.97); Red Cell Distribution Width 13.5 % (11.5-14.5)
[2022-08-17 01:42] LABS: BUN/Creatinine Ratio 12 (6-26); Blood Urea Nitrogen 7 mg/dL (6-20); Calcium 5.8 mg/dL (8.6-10.3); Carbon Dioxide 18 mEq/L (23-29); Chloride 115 mEq/L (98-107); Glucose 103 mg/dL (70-105); Osmolality,Calculated 284 (280-300); Potassium 2.6 mEq/L (3.5-5.1); Sodium 138 mEq/L (136-145)
[2022-08-17] MEDS ORDERED: Vancomycin 1,250 MG/262.5 ML IV.SOLN IVPB SCH (02:00)
[2022-08-17] MEDS: Piperacillin/Tazobactam 3.375 GM in 0.9 % Sodium Chloride Mini Bag 100 ML IVPB SCH (02:16)
[2022-08-17] MEDS ORDERED: Calcium Gluconate 1gm/50mL 1 GM/50 ML BAG IVPB ONE (02:22)
[2022-08-17] MEDS: *HR* Heparin 5,000 UNIT/ML VIAL SQ SCH (05:27)
[2022-08-17 08:21] VITALS: BP 155/92; PULSE 103; TEMP 97.7; O2SAT 95
== END 2022-08-17 08:28 | disposition left against medical advice (07) | DRG 720 ==
LOC: 3ANU → SUATTDRO 21:28
PROVIDERS: ADMIT Internal Medicine; ATTEND Internal Medicine

== ENCOUNTER 2022-08-17 09:40 | Inpatient (IN) ==
[2022-08-17] MEDS ORDERED: Ondansetron 4 MG/2 ML VIAL IVP PRN (11:46)
[2022-08-17] MEDS ORDERED: Naloxone 0.4 MG/ML INJ IVP PRN (11:46)
[2022-08-17] MEDS: Vancomycin 1,250 MG/262.5 ML IV.SOLN IVPB SCH ×2 (13:00→19:59)
[2022-08-17 13:23] LABS: Amphetamine Screen,Urine Negative ng/mL (Cutoff=1000); Barbiturate Screen,Urine Negative ng/mL (Cutoff=200); Benzodiazepines Screen,Urine Negative ng/mL (Cutoff=200); Cannabinoid Screen,Urine Positive ng/mL (Cutoff = 50); Cocaine Screen,Urine Negative ng/mL (Cutoff= 300); Opiate Screen,Urine Negative ng/mL (Cutoff=300); Phencyclidine Screen,Urine Negative ng/mL (Cutoff=25)
[2022-08-17] MEDS: *HR* Heparin 5,000 UNIT/ML VIAL SQ SCH (17:41)
[2022-08-17] MEDS ORDERED: *HR* Labetalol 20 MG/4 ML SYRINGE IVP ONE (23:40)
[2022-08-18 02:50] LABS: Basophils # 0.1 K/mcL (0.0-0.2); Basophils % 0.6 %; Eosinophils # 0.2 K/mcL (0.0-0.6); Eosinophils % 1.1 %; Hematocrit 27.2 % (35.3-44.9); Immature Granulocytes % 5.2 % (0-4); Lymphocytes # 1.7 K/mcL (0.6-4.6); Mean Corpuscular HGB Conc 33.1 g/dL (31.6-35.5); Mean Corpuscular Hemoglobin 27.5 pg (28.0-33.3); Mean Corpuscular Volume 83.2 fL (83.0-100.0); Mean Platelet Volume 9.4 fL (9.4-12.4); Monocytes # 1.3 K/mcL (0.0-1.3); Monocytes % 8.5 %; Platelet Count 385 K/mcL (140-400); Red Blood Count 3.27 M/mcL (3.82-4.97); Red Cell Distribution Width 13.5 % (11.5-14.5); Segmented Neutrophils % 73.6 %; White Blood Count 15.8 K/mcL (4.3-11.1)
[2022-08-18 03:12] LABS: Neutrophils # 11.6 K/mcL (1.6-8.9)
[2022-08-18 03:19] LABS: Calcium 7.9 mg/dL (8.6-10.3); Potassium 3.5 mEq/L (3.5-5.1)
[2022-08-18 03:26] LABS: Platelet Estimate Normal (Normal)
[2022-08-18] MEDS: Vancomycin 1,250 MG/262.5 ML IV.SOLN IVPB SCH ×2 (03:47→12:32)
[2022-08-18] MEDS: *HR* Heparin 5,000 UNIT/ML VIAL SQ SCH ×2 (03:47→18:56)
[2022-08-18] MEDS ORDERED: Acetaminophen IV 500 MG/50 ML BAG IVPB ONE (04:34)
[2022-08-18] MEDS: Simethicone 80 MG TAB.CHEW PO PRN (12:32)
[2022-08-18] MEDS ORDERED: Ibuprofen 400 MG TABLET PO PRN (12:43)
[2022-08-18] MEDS: Acetaminophen 325 MG TABLET PO PRN ×2 (13:17→21:15)
[2022-08-18] MEDS ORDERED: *HR* FentaNYL (PF) 100 MCG/2 ML VIAL ONE (15:17)
[2022-08-18] MEDS ORDERED: *HR* FentaNYL (PF) 100 MCG/2 ML VIAL IVP ONE (15:20)
[2022-08-18 19:33] LABS: RBC,Pleural Fluid 5000 RBC/mcL
[2022-08-18 21:23] LABS: Appearance of Pleural Fl Cloudy (Clear)
[2022-08-18 21:27] LABS: Eosinophils,Pleural Fluid 0 %
[2022-08-18] MEDS: Ketorolac 30 MG/ML VIAL IVP PRN (22:06)
[2022-08-18 22:32] LABS: Glucose,Pleural Fluid 30 mg/dL (No Ref Range); LDH,Pleural Fluid > 1200 Units/L (No Ref Range); Total Protein,Pleural Fluid 3.7 g/dL
[2022-08-19] MEDS: *HR* Heparin 5,000 UNIT/ML VIAL SQ SCH (05:00)
[2022-08-19] MEDS: Vancomycin 1,250 MG/262.5 ML IV.SOLN IVPB SCH (07:21)
[2022-08-19] MEDS: Vancomycin 1,500 MG/265 ML IV.SOLN IVPB SCH ×3 (08:36→22:04)
[2022-08-19 09:32] LABS: Hematocrit 30.6 % (35.3-44.9); Mean Corpuscular HGB Conc 32.7 g/dL (31.6-35.5); Mean Corpuscular Hemoglobin 27.1 pg (28.0-33.3); Mean Corpuscular Volume 82.9 fL (83.0-100.0); Mean Platelet Volume 9.7 fL (9.4-12.4); Nucleated Red Blood Cells 0.2 /100 WBC (0); Platelet Count 446 K/mcL (140-400); Red Blood Count 3.69 M/mcL (3.82-4.97); Red Cell Distribution Width 13.3 % (11.5-14.5); White Blood Count 12.5 K/mcL (4.3-11.1)
[2022-08-19 09:35] LABS: Albumin 2.5 g/dL (3.5-5.7); Albumin/Globulin Ratio 0.8 (1.1-2.2); Bilirubin,Total 0.4 mg/dL (0.3-1.0); Calcium 8.1 mg/dL (8.6-10.3); Globulin 3.2 g/dL (2.4-3.5); Total Protein 5.7 g/dL (6.4-8.9)
[2022-08-19] MEDS: Ketorolac 30 MG/ML VIAL IVP PRN (10:55)
[2022-08-19] MEDS ORDERED: *HR* HYDROcodone/Acet 5/325 mg TABLET PO PRN (11:40)
[2022-08-19] MEDS ORDERED: Ibuprofen 400 MG TABLET PO PRN (11:41)
[2022-08-19] MEDS ORDERED: Ketorolac 30 MG/ML VIAL IVP PRN (12:16)
[2022-08-20 05:24] LABS: Hemoglobin 9.1 g/dL (11.5-15.4); Mean Corpuscular HGB Conc 32.5 g/dL (31.6-35.5); Mean Corpuscular Hemoglobin 27.1 pg (28.0-33.3); Mean Corpuscular Volume 83.3 fL (83.0-100.0); Mean Platelet Volume 9.2 fL (9.4-12.4); Platelet Count 631 K/mcL (140-400); Red Blood Count 3.36 M/mcL (3.82-4.97); Red Cell Distribution Width 13.5 % (11.5-14.5); White Blood Count 15.1 K/mcL (4.3-11.1)
[2022-08-20 05:43] LABS: Magnesium 1.8 mg/dL (1.6-2.6); Phosphorous 3.6 mg/dL (2.7-4.5)
[2022-08-20 05:47] LABS: Potassium 3.8 mEq/L (3.5-5.1)
[2022-08-20] MEDS: Vancomycin 1,500 MG/265 ML IV.SOLN IVPB SCH ×2 (11:07→23:08)
[2022-08-20] MEDS: Piperacillin/Tazobactam 3.375 GM in 0.9 % Sodium Chloride Mini Bag 100 ML IVPB SCH ×2 (16:14→23:09)
[2022-08-20] MEDS: Acetaminophen 325 MG TABLET PO PRN (16:15)
[2022-08-20] MEDS: Simethicone 80 MG TAB.CHEW PO PRN (17:11)
[2022-08-21 00:53] LABS: Hemoglobin 8.9 g/dL (11.5-15.4); Mean Corpuscular Hemoglobin 27.6 pg (28.0-33.3); Mean Corpuscular Volume 83.9 fL (83.0-100.0); Mean Platelet Volume 9.4 fL (9.4-12.4); Platelet Count 639 K/mcL (140-400); Red Blood Count 3.22 M/mcL (3.82-4.97); Red Cell Distribution Width 13.5 % (11.5-14.5)
[2022-08-21 01:17] LABS: Potassium 4.5 mEq/L (3.5-5.1)
[2022-08-21] MEDS ORDERED: Lidocaine -MPF 2% 2 ML VIAL ONE (08:12)
[2022-08-21] MEDS ORDERED: Sugammadex Sodium 200 MG/2 ML VIAL IV ONE (08:12)
[2022-08-21] MEDS ORDERED: *HR* Rocuronium Bromide 50 MG/5 ML VIAL ONE (08:12)
[2022-08-21] MEDS ORDERED: *HR* Propofol 200 MG/20 ML VIAL IVP ONE (08:12)
[2022-08-21] MEDS: Piperacillin/Tazobactam 3.375 GM in 0.9 % Sodium Chloride Mini Bag 100 ML IVPB SCH ×3 (08:22→23:45)
[2022-08-21] MEDS ORDERED: *HR* FentaNYL (PF) 100 MCG/2 ML VIAL ONE ×2 (08:54→09:36)
[2022-08-21] MEDS ORDERED: *HR* Midazolam HCl 2 MG/2 ML VIAL ONE (08:55)
[2022-08-21] MEDS ORDERED: *HR* HYDROmorphone PF 0.5 MG/0.5 ML SYRINGE IVP PRN (09:27)
[2022-08-21] MEDS ORDERED: Acetaminophen IV 1,000 MG/100 ML BAG IVPB PRN (09:27)
[2022-08-21] MEDS ORDERED: Ketorolac 30 MG/ML VIAL IVP PRN (09:27)
[2022-08-21] MEDS ORDERED: *HR* OxyCODONE Immed Rel 5 MG TABLET PO PRN (09:27)
[2022-08-21] MEDS ORDERED: *HR* FentaNYL (PF) 100 MCG/2 ML VIAL IVP PRN (09:27)
[2022-08-21] MEDS ORDERED: Ipratropium Neb 0.5 MG NEBULIZER IH PRN (09:27)
[2022-08-21] MEDS ORDERED: Promethazine 6.25 MG in Water for inj. (sterile) 20 ML IVPB PRN (09:27)
[2022-08-21] MEDS ORDERED: Albuterol 2.5 MG/3 ML NEBULIZER IH PRN (09:27)
[2022-08-21] MEDS ORDERED: Ondansetron 4 MG/2 ML VIAL IVP PRN (09:27)
[2022-08-21] MEDS ORDERED: *HR* Labetalol 20 MG/4 ML SYRINGE IVP PRN (09:27)
[2022-08-21] MEDS ORDERED: Ketamine HCL *QUVA* 50mg (1mL) SYRINGE ONE (09:35)
[2022-08-21] MEDS ORDERED: *HR* Magnesium Sulfate 1 GM/2 ML VIAL ONE (09:41)
[2022-08-21] MEDS ORDERED: Ketorolac 30 MG/ML VIAL ONE (10:41)
[2022-08-21] MEDS ORDERED: Pregabalin 75 MG CAPSULE PO ONE ×2 (11:45→12:06)
[2022-08-21] MEDS ORDERED: tiZANidine 4 MG TABLET PO ONE ×2 (11:45→12:06)
[2022-08-21] MEDS ORDERED: Ketorolac 30 MG/ML VIAL IVP SCH (12:06)
[2022-08-21] MEDS: Vancomycin 1,500 MG/265 ML IV.SOLN IVPB SCH ×2 (13:21→19:48)
[2022-08-21] MEDS: *HR* Heparin 5,000 UNIT/ML VIAL SQ SCH ×2 (13:30→20:38)
[2022-08-21] MEDS: Ketorolac 30 MG/ML VIAL IVP SCH ×2 (17:27→23:45)
[2022-08-21] MEDS: 0.9 % Sodium Chloride 1,000 ML IVC SCH (17:34)
[2022-08-21] MEDS: Simethicone 80 MG TAB.CHEW PO PRN (20:38)
[2022-08-21] MEDS: Famotidine 20 MG TABLET PO SCH (20:38)
[2022-08-21] MEDS: *HR* HYDROcodone/Acet 7.5/325 mg TABLET PO PRN (20:38)
[2022-08-21] MEDS: Sennosides/Docusate Sodium TABLET PO SCH (20:38)
[2022-08-21] MEDS: Ondansetron 4 MG/2 ML VIAL IVP PRN (23:45)
[2022-08-22] MEDS: *HR* HYDROcodone/Acet 7.5/325 mg TABLET PO PRN ×6 (00:44→21:41)
[2022-08-22] MEDS: Vancomycin 1,500 MG/265 ML IV.SOLN IVPB SCH ×2 (01:41→12:37)
[2022-08-22 02:52] LABS: Hematocrit 28.1 % (35.3-44.9); Mean Corpuscular Hemoglobin 27.3 pg (28.0-33.3); Mean Corpuscular Volume 85.2 fL (83.0-100.0); Mean Platelet Volume 9.4 fL (9.4-12.4); Platelet Count 817 K/mcL (140-400); Red Cell Distribution Width 13.2 % (11.5-14.5); White Blood Count 18.9 K/mcL (4.3-11.1)
[2022-08-22 03:43] LABS: Calcium 8.4 mg/dL (8.6-10.3); Potassium 4.5 mEq/L (3.5-5.1)
[2022-08-22] MEDS: 0.9 % Sodium Chloride 1,000 ML IVC SCH (04:45)
[2022-08-22] MEDS: Ketorolac 30 MG/ML VIAL IVP SCH ×3 (05:26→16:57)
[2022-08-22] MEDS: *HR* Heparin 5,000 UNIT/ML VIAL SQ SCH ×3 (05:27→21:41)
[2022-08-22] MEDS: Piperacillin/Tazobactam 3.375 GM in 0.9 % Sodium Chloride Mini Bag 100 ML IVPB SCH ×2 (09:29→17:01)
[2022-08-22] MEDS: Sennosides/Docusate Sodium TABLET PO SCH ×2 (09:29→21:43)
[2022-08-22] MEDS: Famotidine 20 MG TABLET PO SCH ×2 (09:29→21:42)
[2022-08-22 10:13] LABS: Fluid Source for Triglycerides PLEURAL FLUID; Triglycerides,Body Fluid 57 mg/dL
[2022-08-22] MEDS: Simethicone 80 MG TAB.CHEW PO PRN (17:26)
[2022-08-23] MEDS: Simethicone 80 MG TAB.CHEW PO PRN (01:09)
[2022-08-23] MEDS: Ketorolac 30 MG/ML VIAL IVP SCH ×2 (01:10→06:28)
[2022-08-23] MEDS: *HR* HYDROcodone/Acet 7.5/325 mg TABLET PO PRN ×5 (01:10→20:52)
[2022-08-23] MEDS: Piperacillin/Tazobactam 3.375 GM in 0.9 % Sodium Chloride Mini Bag 100 ML IVPB SCH ×3 (01:11→16:32)
[2022-08-23] MEDS: Vancomycin 1,500 MG/265 ML IV.SOLN IVPB SCH ×2 (01:11→14:53)
[2022-08-23 03:15] LABS: Hematocrit 26.1 % (35.3-44.9); Hemoglobin 8.1 g/dL (11.5-15.4); Mean Corpuscular Hemoglobin 26.6 pg (28.0-33.3); Mean Corpuscular Volume 85.9 fL (83.0-100.0); Platelet Count 904 K/mcL (140-400); Red Blood Count 3.04 M/mcL (3.82-4.97); Red Cell Distribution Width 13.4 % (11.5-14.5); White Blood Count 13.7 K/mcL (4.3-11.1)
[2022-08-23 03:30] LABS: Calcium 8.4 mg/dL (8.6-10.3); Potassium 4.3 mEq/L (3.5-5.1)
[2022-08-23] MEDS: *HR* Heparin 5,000 UNIT/ML VIAL SQ SCH ×3 (06:29→20:29)
[2022-08-23] MEDS: Famotidine 20 MG TABLET PO SCH ×2 (07:57→20:29)
[2022-08-23] MEDS: Sennosides/Docusate Sodium TABLET PO SCH ×2 (07:57→20:29)
[2022-08-23] MEDS: Acetaminophen 325 MG TABLET PO PRN (18:45)
[2022-08-24] MEDS: Piperacillin/Tazobactam 3.375 GM in 0.9 % Sodium Chloride Mini Bag 100 ML IVPB SCH ×3 (01:06→17:06)
[2022-08-24] MEDS: *HR* HYDROcodone/Acet 7.5/325 mg TABLET PO PRN ×4 (01:07→23:19)
[2022-08-24] MEDS ORDERED: Chlorhexidine Rinse 15 ML MOUTHWASH MM SCH (02:30)
[2022-08-24 02:31] LABS: Hematocrit 27.1 % (35.3-44.9); Hemoglobin 8.5 g/dL (11.5-15.4); Mean Corpuscular HGB Conc 31.4 g/dL (31.6-35.5); Mean Corpuscular Hemoglobin 27.1 pg (28.0-33.3); Mean Corpuscular Volume 86.3 fL (83.0-100.0); Mean Platelet Volume 8.8 fL (9.4-12.4); Platelet Count 960 K/mcL (140-400); Red Blood Count 3.14 M/mcL (3.82-4.97); Red Cell Distribution Width 13.4 % (11.5-14.5); White Blood Count 11.5 K/mcL (4.3-11.1)
[2022-08-24 02:50] LABS: Calcium 8.5 mg/dL (8.6-10.3); Potassium 4.5 mEq/L (3.5-5.1)
[2022-08-24] MEDS ORDERED: Chloraseptic Spray 177 ML BOTTLE MM PRN (04:09)
[2022-08-24 04:28] LABS: Bilirubin,Urine Negative (Negative); Blood,Urine Negative (Negative); Clarity,Urine Clear (Clear); Color,Urine Colorless (Yellow); Glucose,Urine (UA) Normal (Normal); Ketones,Urine Negative (Negative); Leukocyte Esterase,Urine Negative (Negative); Nitrite,Urine Negative (Negative); PH,Urine 6.5 pH Units (5.0-8.0); Protein,Urine Negative (Neg-Trace); Urobilinogen,Urine Normal (Normal)
[2022-08-24] MEDS: Acetaminophen 325 MG TABLET PO PRN (05:52)
[2022-08-24] MEDS: *HR* Heparin 5,000 UNIT/ML VIAL SQ SCH ×3 (05:52→22:05)
[2022-08-24] MEDS: Sennosides/Docusate Sodium TABLET PO SCH ×2 (08:14→22:06)
[2022-08-24] MEDS: Simethicone 80 MG TAB.CHEW PO PRN (08:14)
[2022-08-24] MEDS: Famotidine 20 MG TABLET PO SCH ×2 (08:14→22:06)
[2022-08-25] MEDS: Piperacillin/Tazobactam 3.375 GM in 0.9 % Sodium Chloride Mini Bag 100 ML IVPB SCH (03:31)
[2022-08-25 03:46] LABS: Hematocrit 26.3 % (35.3-44.9); Hemoglobin 8.2 g/dL (11.5-15.4); Mean Corpuscular HGB Conc 31.2 g/dL (31.6-35.5); Mean Corpuscular Volume 86.5 fL (83.0-100.0); Mean Platelet Volume 8.4 fL (9.4-12.4); Platelet Count 895 K/mcL (140-400); Red Blood Count 3.04 M/mcL (3.82-4.97); Red Cell Distribution Width 13.6 % (11.5-14.5); White Blood Count 10.2 K/mcL (4.3-11.1)
[2022-08-25 04:05] LABS: Calcium 8.7 mg/dL (8.6-10.3); Potassium 4.4 mEq/L (3.5-5.1)
[2022-08-25] MEDS: *HR* Heparin 5,000 UNIT/ML VIAL SQ SCH ×3 (05:27→20:38)
[2022-08-25] MEDS: *HR* HYDROcodone/Acet 7.5/325 mg TABLET PO PRN ×2 (05:27→09:27)
[2022-08-25] MEDS: Ondansetron 4 MG/2 ML VIAL IVP PRN (07:52)
[2022-08-25] MEDS: Sennosides/Docusate Sodium TABLET PO SCH ×2 (08:06→20:38)
[2022-08-25] MEDS: Famotidine 20 MG TABLET PO SCH ×2 (08:06→20:38)
[2022-08-25 09:27] LABS: Uric Acid 3.6 mg/dL (2.3-7.6)
[2022-08-25] MEDS ORDERED: *HR* HYDROmorphone (PF) 1 MG/ML SYRINGE IVP ONE (11:01)
[2022-08-25 12:21] LABS: Hepatitis B Surface Antigen Nonreactive (Nonreactive)
[2022-08-25 12:50] LABS: Hepatitis B Core IgM Nonreactive (Nonreactive)
[2022-08-25 12:52] LABS: Hepatitis A Antibody IgM Nonreactive (Nonreactive)
[2022-08-25] MEDS: Ceftaroline Fosamil Acetate 400 MG in 0.9 % Sodium Chloride 50 ML IVPB SCH (13:32)
[2022-08-25] MEDS: 0.9 % Sodium Chloride 1,000 ML IVC SCH (13:32)
[2022-08-25 14:08] LABS: Hepatitis C Virus Antibody Reactive (Nonreactive)
[2022-08-25] MEDS ORDERED: metroNIDAZOLE 500 MG TABLET PO SCH (15:00)
[2022-08-25 15:09] LABS: HIV-1&2 Antibody & p24 Ag Nonreactive (Nonreactive)
[2022-08-25 15:21] LABS: Rheumatoid Factor < 10 IU/mL (Less than 14)
[2022-08-25] MEDS: *HR* HYDROcodone/Acet 5/325 mg TABLET PO PRN (18:31)
[2022-08-26] MEDS: *HR* HYDROcodone/Acet 5/325 mg TABLET PO PRN ×2 (00:04→17:18)
[2022-08-26] MEDS: 0.9 % Sodium Chloride 1,000 ML IVC SCH ×2 (01:41→21:35)
[2022-08-26] MEDS: Ceftaroline Fosamil Acetate 400 MG in 0.9 % Sodium Chloride 50 ML IVPB SCH ×2 (01:52→14:22)
[2022-08-26] MEDS: *HR* Heparin 5,000 UNIT/ML VIAL SQ SCH ×3 (05:31→21:34)
[2022-08-26] MEDS: Ondansetron 4 MG/2 ML VIAL IVP PRN ×2 (07:08→16:19)
[2022-08-26] MEDS: Sennosides/Docusate Sodium TABLET PO SCH ×2 (07:21→21:34)
[2022-08-26] MEDS: metroNIDAZOLE 500 MG TABLET PO SCH ×3 (08:07→21:34)
[2022-08-26] MEDS: Famotidine 20 MG TABLET PO SCH ×2 (08:07→21:34)
[2022-08-27] MEDS: 0.9 % Sodium Chloride 1,000 ML IVC SCH ×4 (01:24→18:21)
[2022-08-27] MEDS: Ceftaroline Fosamil Acetate 400 MG in 0.9 % Sodium Chloride 50 ML IVPB SCH ×2 (01:29→14:02)
[2022-08-27] MEDS: Ondansetron 4 MG/2 ML VIAL IVP PRN ×3 (03:06→18:50)
[2022-08-27] MEDS: *HR* Heparin 5,000 UNIT/ML VIAL SQ SCH (08:04)
[2022-08-27] MEDS: metroNIDAZOLE 500 MG TABLET PO SCH (09:24)
[2022-08-27] MEDS: Famotidine 20 MG TABLET PO SCH (09:24)
[2022-08-27] MEDS: Sennosides/Docusate Sodium TABLET PO SCH (09:25)
[2022-08-27 10:29] LABS: Hematocrit 30.2 % (35.3-44.9); Hemoglobin 9.6 g/dL (11.5-15.4); Mean Corpuscular HGB Conc 31.8 g/dL (31.6-35.5); Mean Corpuscular Hemoglobin 27.2 pg (28.0-33.3); Mean Corpuscular Volume 85.6 fL (83.0-100.0); Mean Platelet Volume 8.7 fL (9.4-12.4); Platelet Count 899 K/mcL (140-400); Red Blood Count 3.53 M/mcL (3.82-4.97); Red Cell Distribution Width 13.6 % (11.5-14.5); White Blood Count 9.5 K/mcL (4.3-11.1)
[2022-08-27] MEDS: Piperacillin/Tazobactam 3.375 GM in 0.9 % Sodium Chloride Mini Bag 100 ML IVPB SCH ×2 (11:28→11:29)
[2022-08-27 13:12] LABS: Albumin/Globulin Ratio 0.7 (1.1-2.2); Bilirubin,Total 0.2 mg/dL (0.3-1.0); Calcium 9.2 mg/dL (8.6-10.3); Globulin 4.5 g/dL (2.4-3.5); Potassium 4.5 mEq/L (3.5-5.1); Total Protein 7.5 g/dL (6.4-8.9)
[2022-08-28] MEDS: Doxycycline 100 MG CAPSULE PO SCH ×2 (01:23→08:45)
[2022-08-28] MEDS: 0.9 % Sodium Chloride 1,000 ML IVC SCH (01:24)
[2022-08-28] MEDS: Sennosides/Docusate Sodium TABLET PO SCH ×2 (01:24→08:45)
[2022-08-28] MEDS: Ondansetron 4 MG/2 ML VIAL IVP PRN (02:58)
[2022-08-28] MEDS ORDERED: Famotidine 20 MG TABLET PO SCH (06:30)
[2022-08-28 10:09] LABS: Calcium 9.3 mg/dL (8.6-10.3); Potassium 4.6 mEq/L (3.5-5.1)
[2022-08-28 11:29] VITALS: BP 121/73; PULSE 82; TEMP 98.6; O2SAT 98
== END 2022-08-28 14:15 | disposition home or self-care (01) | DRG 137 ==
LOC: EMEROOARM 09:40 → 3BNU 09:40 → SUATTDRO 12:13 → 3BNU 15:20 → SUATTDRO 08-18 12:39 → 2NENU 08-18 15:41 → 2NNU 08-21 12:08 → 2NENU 08-27 11:21
PROVIDERS: ADMIT Hospitalist; ATTEND Internal Medicine